=== PATIENT | male | born 1990 | race Caucasian/White ===

== ENCOUNTER → 2017-02-19 | Outpatient (CLI) | payer OTHER ==
--- NOTE | 2017-02-19 20:31 | REP ---
Whole body PET CT scan for evaluation of known osteosarcoma of the proximal right femur. Comparisons are the plain film study of the right femur dated 01/07/[address] of the right femur dated 01/07/2017. Whole body PET CT scanning is performed from the skull base to the upper thighs. Neck and supraclavicular areas: There are no hypermetabolic foci. Chest: There is a small 8 mm focus of uptake in the lateral costophrenic angle of the left hemithorax, corresponding to a small lung nodule. The maximal standard uptake value in this nodule is 3.2. This is a hypermetabolic. There are no other hypermetabolic foci in the chest. Abdomen, pelvis and upper thighs: There is a large area of confluent multifocal hypermetabolic foci corresponding to the patient's known large mass in the proximal right femur. Maximal standard uptake value is 14.7. There are no other hypermetabolic foci in the abdomen, pelvis or upper thighs. There is radiotracer renal excretion. This is physiologic. There is nonspecific bowel uptake. Impression: There is a small 8 mm focus of hypermetabolic uptake related to a lung nodule in the lateral costophrenic sulcus of the left lung. There is confluent multifocal hypermetabolic uptake in the patient's known mass in the right femur. There are no other hypermetabolic foci. The study is performed with a millicuries of F 18 FDG. Signed by Justen Benítez MD 02/19/2017 08:22 P
== END ==
LOC: M PLARAD 10:25
PROVIDERS: ATTEND Internal Medicine Hematology & Oncology
DX: C40.21 Malignant neoplasm of long bones of right lower limb (principal); R91.8 Other nonspecific abnormal finding of lung field
CPT/HCPCS: 78815; A9552

== ENCOUNTER → 2017-05-06 | Outpatient (REF) | payer OTHER | LOC: M SFHCLERA 13:04 | DX: R68.89 Other general symptoms and signs (principal) ==

== ENCOUNTER → 2017-08-26 | Outpatient (CLI) | payer OTHER | LOC: M ONCR 14:18 | DX: C40.21 Malignant neoplasm of long bones of right lower limb (principal) ==

== ENCOUNTER 2017-09-04 09:51 | Outpatient (RCR) | payer OTHER | END 2017-09-13 | LOC: M ONCR 09:51 | DX: C76.51 Malignant neoplasm of right lower limb (principal) | CPT/HCPCS: 77334 ==

== ENCOUNTER 2017-10-23 14:08 | Outpatient (RCR) | payer OTHER | END 2017-11-14 | LOC: M ONCR 14:08 | DX: C76.51 Malignant neoplasm of right lower limb (principal) | CPT/HCPCS: 77300 ==

== ENCOUNTER 2017-11-18 09:45 | Outpatient (RCR) | payer OTHER | END 2017-12-14 | LOC: M ONCR 09:45 | DX: C76.51 Malignant neoplasm of right lower limb (principal) | CPT/HCPCS: 77300 ==

== ENCOUNTER 2017-12-22 09:25 | Outpatient (RCR) | payer OTHER | END 2018-01-14 | LOC: M ONCR 09:25 | DX: C76.51 Malignant neoplasm of right lower limb (principal) | CPT/HCPCS: 77336 ==

== ENCOUNTER → 2017-12-31 | Outpatient (CLI) | payer OTHER ==
[~2017-12-31] MED LIST: GASTROGRAFIN SOLUTION 30ML (Q9963) As Ordered; ISOVUE-370 76% 100ML VIAL (Q9967) As Ordered
== END ==
LOC: M RAD 13:21
DX: C41.9 Malignant neoplasm of bone and articular cartilage, unspecified (principal); C40.21 Malignant neoplasm of long bones of right lower limb; R59.9 Enlarged lymph nodes, unspecified; R91.8 Other nonspecific abnormal finding of lung field
CPT/HCPCS: Q9963

== ENCOUNTER 2018-03-03 15:21 | Outpatient (RCR) | payer OTHER ==
[2018-03-12] MEDS ORDERED: OXYC10TA12 PO (14:15)
[2018-03-12] MEDS ORDERED: XARE15TA PO (14:15)
[2018-03-12] MEDS ORDERED: OXYC-517 PO (14:15)
[2018-03-19] MEDS ORDERED: OXYC-403 PO (10:19)
== END 2018-03-16 ==
LOC: M PT 15:21
PROVIDERS: ATTEND Radiology Radiation Oncology
DX: I89.0 Lymphedema, not elsewhere classified (principal)

== ENCOUNTER → 2018-04-06 | Outpatient (CLI) | payer OTHER ==
[~2018-04-06] MED LIST changes: +ALPR2TAB3 PO; +DEXA4TA PO; -GASTROGRAFIN SOLUTION 30ML (Q9963) As Ordered; -ISOVUE-370 76% 100ML VIAL (Q9967) As Ordered; +MORP-38 PO; +ONDA8TAB7 PO; +OXYC-403 PO; +OXYC-517 PO; +OXYC10TA12 PO; +PROC10TA4 PO; +XARE15TA PO
== END ==
LOC: M OPCLI5PR 08:00
PROVIDERS: ATTEND Internal Medicine Hematology & Oncology
DX: R31.9 Hematuria, unspecified (principal); C41.9 Malignant neoplasm of bone and articular cartilage, unspecified; Z88.1 Allergy status to other antibiotic agents; Z88.0 Allergy status to penicillin; Z88.2 Allergy status to sulfonamides; Z79.899 Other long term (current) drug therapy
CPT/HCPCS: 36430; P9016

== ENCOUNTER 2018-04-15 10:00 | Outpatient (RCR) | payer OTHER | END 2018-04-16 | LOC: M PT 10:00 | PROVIDERS: ATTEND Radiology Radiation Oncology | DX: I89.0 Lymphedema, not elsewhere classified (principal) ==

== ENCOUNTER 2018-04-24 12:00 | Outpatient (RCR) | payer OTHER ==
[2018-04-27] MEDS ORDERED: CLIN150C14 PO (14:06)
[2018-05-05] MEDS ORDERED: SPIR-10 PO (15:52)
[2018-05-05] MEDS ORDERED: OXYC10TA12 PO (16:14)
[2018-05-07] MEDS ORDERED: DEXA4TA PO (10:19)
[2018-05-07] MEDS ORDERED: XANA0.25 PO (13:43)
== END 2018-05-14 ==
LOC: M PT 12:00
PROVIDERS: ATTEND Radiology Radiation Oncology
DX: I89.0 Lymphedema, not elsewhere classified (principal)

== ENCOUNTER → 2018-05-12 | Outpatient (CLI) | payer OTHER ==
[~2018-05-12] MED LIST changes: +CLIN150C14 PO; +IMOD2TAB16 PO; +SPIR-10 PO; +XANA0.25 PO; +ZOFR8TAB24 PO
--- NOTE | 2018-05-12 14:00 | REP ---
Clinical: Scrotal swelling. Technique: Real time kellogg scale and color Doppler evaluation using high frequency transducer. Findings: Marked diffuse scrotal swelling is appreciated and otherwise nonspecific. Bilateral testicles and epididymi are relatively normal in contour, size, echogenicity, and vascularity without evidence for intratesticular mass lesion, infectious/inflammatory process, or torsion. Right testicle measures 3.3 x 2.1 x 2.4 cm. Left testicle measures 3.9 x 2.3 x 2.3 cm. No hydrocele. No varicocele. Impression: Marked scrotal swelling. Relatively normal appearance to the bilateral testicles and epididymi. Electronically Signed by All Pedroza MD 05/12/2018 01:51 P
== END ==
LOC: M RAD 12:19
PROVIDERS: ATTEND Nurse Practitioner Family
DX: N50.89 Other specified disorders of the male genital organs (principal)

== ENCOUNTER 2018-05-20 13:03 | Inpatient (IN) | payer OTHER ==
[~2018-05-20] VITALS: Ht 185.4 cm; Wt 141.0 kg
[~2018-05-20 13:03] MED LIST changes: -IMOD2TAB16 PO; -ZOFR8TAB24 PO
[2018-05-20] MEDS ORDERED: ONDANSETRON 4MG/2ML VIAL (J2405) IV ONE (13:30)
[2018-05-20] MEDS ORDERED: NS 1,000 ML IV ONE (13:30)
[2018-05-20] MEDS ORDERED: PROC10TA4 PO (15:55)
[2018-05-20] MEDS ORDERED: IMOD2TAB16 PO (15:55)
[2018-05-20] MEDS ORDERED: OXYC10TA12 PO (15:55)
[2018-05-20] MEDS ORDERED: XANA0.25 PO (15:55)
[2018-05-20] MEDS ORDERED: DEXA4TA PO (15:55)
[2018-05-20] MEDS ORDERED: ZOFR8TAB24 PO (15:55)
[2018-05-20 16:30] LABS: HEMATOCRIT 18.5 % (42.0-52.0); LYMPH % 5.7 % (24.0-44.0); MEAN CORPUSCULAR HEMOGLOBIN 27.1 pg (27.0-33.0); MEAN CORPUSCULAR HGB CONC 32.4 g/dl (32.0-36.5); MEAN CORPUSCULAR VOLUME 83.7 fl (80.0-96.0); MONO # 0.1 10^3/uL (0.0-0.8); MONO % 11.4 % (0.0-5.0); NEUTROPHILS % 74.9 % (36.0-66.0); RED BLOOD COUNT 2.21 10^6/uL (4.30-6.10)
[2018-05-20 16:31] LABS: LYMPH # 0.1 10^3/uL (1.5-6.5); NEUTROPHILS # 0.7 10^3/uL (1.8-7.7); PLATELET COUNT, AUTOMATED 56 10^3/uL (150-450); WHITE BLOOD COUNT 0.9 10^3/uL (4.0-10.0)
[2018-05-20] MEDS ORDERED: POTASSIUM CHLORIDE 10 MEQ SR TABLET PO ONE (17:00)
[2018-05-20] MEDS ORDERED: KCL 20MEQ IN 100ML SWI (KRUN) 20 MEQ in APPROPRIATE DILUENT 1 EA IV ONE ×2 (17:00)
[2018-05-20] MEDS ORDERED: AZTREONAM 2 GM in D5W MINI-BAG PLUS 50 ML IV SCH (17:00)
[2018-05-20 17:04] LABS: ALBUMIN 1.5 GM/DL (3.2-5.2); ALT/SGPT 53 U/L (12-78); BILIRUBIN,DIRECT 0.4 MG/DL (0.0-0.2); BILIRUBIN,TOTAL 0.6 MG/DL (0.2-1.0); BLOOD UREA NITROGEN 29 MG/DL (7-18); CARBON DIOXIDE LEVEL 26 MEQ/L (21-32); CHLORIDE LEVEL 96 MEQ/L (98-107); CREATININE FOR GFR 1.17 MG/DL (0.70-1.30); GLOMERULAR FILTRATION RATE > 60.0 (>60); GLUCOSE, FASTING 107 MG/DL (70-100); LIPASE 159 U/L (73-393); POTASSIUM SERUM 2.9 MEQ/L (3.5-5.1); SODIUM LEVEL 133 MEQ/L (136-145); TOTAL PROTEIN 4.8 GM/DL (6.4-8.2)
[2018-05-20] MEDS ORDERED: AZTREONAM 2 GM in D5W MINI-BAG PLUS 50 ML IV ONE (18:00)
[2018-05-20] MEDS ORDERED: NORCO, ANEXSIA 5/325MG TABLET (HYDROcodone/ACETAMINOPHEN) PO ONE (18:15)
[2018-05-20] MEDS ORDERED: D5W/0.45% SODIUM CHLORIDE 1,000 ML IV SCH (18:15)
[2018-05-20] MEDS ORDERED: PANTOPRAZOLE 40MG TAB (PROTONIX) PO ONE (18:15)
[2018-05-20] MEDS: KCL 10MEQ/100ML SWI (KRUN) 10 MEQ in APPROPRIATE DILUENT 1 EA IV SCH ×2 (18:22→20:42)
[2018-05-20 19:40] VITALS: BP 134/75
[2018-05-20] MEDS ORDERED: ACETAMINOPHEN TAB 650MG DOSE (2X325MG) PO PRN (19:45)
[2018-05-20] MEDS ORDERED: ALPRAZolam 0.25 MG TAB PO PRN (19:45)
[2018-05-20] MEDS ORDERED: oxyCODONE 5MG TAB PO PRN (19:45)
[2018-05-20] MEDS: PERCOCET 5MG/325MG TAB PO PRN (21:40)
--- NOTE | 2018-05-20 21:49 | HPE ---
DATE OF ADMISSION: 05/20/2018 CHIEF COMPLAINT: Vomiting, diarrhea, fatigue for about a week. HISTORY OF PRESENT ILLNESS: This is a 28-year-old gentleman with past medical history of progressive osteosarcoma of the bone complicated by profound lymphedema as well as renal obstruction requiring bilateral nephrostomy tubes about a week ago who now presents status post recent chemotherapy last with progressive malaise, vomiting, diarrhea, dehydration and pain. Patient reports that he got his last chemotherapy on . Since that time he has felt pretty wiped out. He has been vomiting, having profound diarrhea about 5 times a day. He actually denies any fevers or cough. He has not been eating well and feels dehydrated. Most of history obtained by his mother as patient felt to fatigued to speak. Dr. Abreu has been following the patient for the osteosarcoma. The last clinic note is from May 14. He was supposed to have a lab draw done yesterday, but he missed this because of profound weakness. He is currently complaining of 8 out of 10 pain in his lower back and right leg. His profound lymphedema including his scrotal edema causes significant discomfort. His mother is really concerned about the lymphedema and is wondering whether it can be "drained". He does follow with Dr. Mccall as his urologist and Dr. Abreu as his oncologist. REVIEW OF SYSTEMS: Negative in 14 out of 14 systems except as noted above. PAST MEDICAL HISTORY: Recent diagnosis of osteosarcoma about a year and a half ago, otherwise was completely healthy prior to that. PAST SURGICAL HISTORY: Patient has had multiple surgeries including right femur surgery, right hip surgery, left ACL surgery, tonsillectomy, appendectomy, and the nephrostomy tubes. MEDICATIONS: Patient's home medications include: - dexamethasone 4 mg with his chemotherapy - loperamide 2 mg as needed diarrhea - Zofran 8 mg every 8 as needed nausea - Compazine 10 mg every 6 as needed nausea - xanax 0.25 mg twice a day as needed anxiety - oxycodone 10 mg by mouth every 4 as needed pain ALLERGIES: Patient is allergic to AMOXICILLIN, CEFACLOR, CLARITHROMYCIN, CLAVULANIC ACID, ERYTHROMYCIN, PENICILLIN and SULFA ANTIBIOTICS. SOCIAL HISTORY: Patient is single. Lives with his mother. Has a girlfriend. Has two daughters and a son. No smoking, alcohol or drugs. FAMILY HISTORY: No family history concerning for malignancy. PHYSICAL EXAMINATION: VITAL SIGNS: He is tachycardic to 113. Blood pressure 116/58, saturating 96% on room air. He is afebrile to 98.9. GENERAL: He appears uncomfortable and fatigued and in pain. HEENT: Oropharynx clear. CARDIOVASCULAR: Tachycardic. No murmurs, rubs or gallops. LUNGS: Clear to auscultation bilaterally, anteriorly. ABDOMEN: Obese. Would not allow palpation of his abdomen secondary to discomfort. : Patient has profound scrotal edema. EXTREMITIES: Patient has significant lower extremity edema, 3+ pitting right greater than left lower extremity. NEUROLOGICAL: Patient is alert and oriented. Follows simple commands. No focal neurologic deficits. PSYCHIATRIC: Mood stable. LABS: Reveal a white count of 0.9, hemoglobin 6, creatinine of 18.5, platelets of 56. Chemistry reveals a potassium 2.9. Creatinine of 1.17. Sodium of 133. UA: From the nephrostomy tube shows 66 whites, positive leukocyte esterase. IMAGING: Patient had a chest x-ray. Read is pending at this time. ASSESSMENT AND PLAN: This is a 28-year-old gentleman with progressive osteosarcoma complicated by significant lymphedema and renal obstruction requiring bilateral nephrostomy tubes, who now presents with neutropenia, pancytopenia, UTI and diarrhea. PROBLEMS: 1. Urinary tract infection in the setting of neutropenia and pancytopenia. Patient UA is positive and he is neutropenic. He is not having fevers, but given the neutropenia, I am going to treat him with aztreonam 1 gram IV daily and we will follow urine cultures. He has got multiple allergies and that is the choice for the aztreonam. 2. Pancytopenia. Patient's hemoglobin is low at 6. He is receiving 2 units blood transfusion. No overt signs of bleeding. His platelets are 56, but he does not need a transfusion for that at this time given there is no overt signs of bleeding. Primary team should call Dr. Abreu tomorrow. I have placed and order on the chart. 3. History of osteosarcoma. Primary team to call Dr. Abreu tomorrow. For now I have placed an order on the chart. 4. History of recent bilateral nephrostomy tubes. Primary team should call Dr. Mccall tomorrow who he follows with for his nephrostomy tubes. Order is placed on the chart. 5. Pain control. Patient does have profound pain from his osteosarcoma. For now he is just requesting the oxycodone as needed that he normally takes at home. 6. Hypokalemia. Patient did receive potassium supplementation in the emergency room and should have a repeat BMP checked tomorrow. 7. Fluids and electrolytes. Nutrition for now, I have placed the patient on a regular diet with IV fluids going at 125 mL an hour. 8. Disposition planning. I have placed a physical therapy (PT) consult. Primary team should discuss with his oncologist his prognosis and palliative care should be considered if prognosis is poor and/or patient is approaching limited treatment options. 9. DVT prophylaxis. Will place the patient on subcutaneous heparin. 10. Patient is FULL CODE.
[2018-05-20] MEDS: ONDANSETRON 4MG/2ML VIAL (J2405) IV PRN (22:09)
[2018-05-20] MEDS: HEPARIN SOD (PORCINE) 5000 UNITS/ML VIAL SC SCH (22:10)
--- NOTE | 2018-05-20 23:04 | REP ---
PORTABLE CHEST: AP portable view of the chest is performed. COMPARISON: Prior CT chest 12/31/2017. There is pleural based opacity on the left probably representing loculated pleural fluid. There is some adjacent left lung base consolidation. There may be a small right effusion with mild adjacent right base atelectasis. Heart is not significantly enlarged. Right central venous catheter is seen with the tip in the superior vena cava. Electronically Signed by Justen hBatt MD 05/21/2018 12:34 A
[2018-05-21] VITALS (7 sets, daily range): BP systolic 116–141; BP diastolic 61–84
[2018-05-21] MEDS ORDERED: AZTREONAM 1 GM in D5W MINI-BAG PLUS 50 ML IV SCH (03:00)
[2018-05-21] MEDS: AZTREONAM 1 GM in D5W MINI-BAG PLUS 50 ML IV SCH ×3 (03:55→18:36)
[2018-05-21] MEDS: PERCOCET 5MG/325MG TAB PO PRN ×4 (04:15→23:37)
[2018-05-21] MEDS: HEPARIN SOD (PORCINE) 5000 UNITS/ML VIAL SC SCH (06:11)
[2018-05-21 08:45] LABS: HEMATOCRIT 21.4 % (42.0-52.0); MEAN CORPUSCULAR HEMOGLOBIN 27.1 pg (27.0-33.0); MEAN CORPUSCULAR HGB CONC 32.2 g/dl (32.0-36.5); MEAN CORPUSCULAR VOLUME 83.9 fl (80.0-96.0); RED BLOOD COUNT 2.55 10^6/uL (4.30-6.10)
[2018-05-21 08:53] LABS: WHITE BLOOD COUNT 1.9 10^3/uL (4.0-10.0)
[2018-05-21 08:57] LABS: HEMOGLOBIN 6.9 g/dl (13.5-17.5); PLATELET COUNT, AUTOMATED 39 10^3/uL (150-450)
[2018-05-21 09:04] LABS: BLOOD UREA NITROGEN 31 MG/DL (7-18); CALCIUM LEVEL 7.4 MG/DL (8.5-10.1); CARBON DIOXIDE LEVEL 26 MEQ/L (21-32); CHLORIDE LEVEL 98 MEQ/L (98-107); CREATININE FOR GFR 1.43 MG/DL (0.70-1.30); GLOMERULAR FILTRATION RATE > 60.0 (>60); GLUCOSE, FASTING 111 MG/DL (70-100); POTASSIUM SERUM 3.1 MEQ/L (3.5-5.1); SODIUM LEVEL 133 MEQ/L (136-145)
[2018-05-21] MEDS: POTASSIUM CHLORIDE 10% LIQ 20 MEQ/15 ML UDC PO ONE ×2 (09:15→10:17)
[2018-05-21] MEDS ORDERED: CEPACOL LOZENGE PO PRN (09:15)
[2018-05-21 09:53] LABS: ANISOCYTOSIS 2+; HYPOCHROMASIA 2+; LYMPHOCYTES 12 % (16-52); MONOCYTES 6 % (0-8); NEUTROPHILS 82 % (35-75); PLATELET ESTIMATE MARKED DECREASE (NORMAL)
[2018-05-21] MEDS: ONDANSETRON 4MG/2ML VIAL (J2405) IV PRN ×2 (10:17→18:37)
[2018-05-21 10:18] LABS: MAGNESIUM LEVEL 2.8 MG/DL (1.8-2.4)
[2018-05-21] MEDS ORDERED: POTASSIUM CHLORIDE 10 MEQ SR TABLET PO ONE ×2 (12:15→18:00)
--- NOTE | 2018-05-21 13:36 | REP ---
CT abdomen and pelvis without IV or oral contrast: History: History of hydronephrosis. History of osteosarcoma. Comparison CT study is from December 31, 2017. CT findings: Digital preliminary property man radiograph demonstrates a right hip prosthesis, moderate to marked gaseous distension of the transverse colon and mild gaseous distension of multiple small bowel loops in the central abdomen consistent with ileus, and bilateral percutaneous nephrostomy tubes in place. Axial CT images at lung window settings demonstrate multiple pulmonary mass lesions and pleural mass lesions many of which contain calcific matrix consistent with osteosarcoma metastases. There are bilateral pleural effusions, left a little larger than right. The liver and the spleen are normal in size, homogeneous in texture. No pancreatic abnormality is seen. Gallbladder is unremarkable. Bilateral percutaneous nephrostomy tubes are noted in good position without evidence of hydronephrosis on either side. There is a huge pelvic mass compressing the left colon and displacing small bowel loops up from the pelvis. This is new when compared with December 31, 2017 and much larger than CT images obtained at the time of the percutaneous biopsy and [facility] on March 05, 2018. The pelvo-abdominal mass measures 12 cm anteroposterior by 19 cm craniocaudal by 14.7 cm right to left. It contains a few focal calcifications. There are also periarticular masses about the right hip prosthesis. Calcified mass is seen spanning through the obturator foramen on the right and extending into the pelvic side wall on the right. There is right common and external iliac adenopathy enveloping the right iliac vessels. There is diffuse edema in the subcutaneous fat of the proximal thighs. Scrotal edema is noted. Subcutaneous edema is seen diffusely throughout the abdominal wall as well. The left colon is compressed. There is a small quantity of fluid in the rectum but the proximal colon is quite dilated mostly with air. On bone windows there is a sclerotic lesion in the left iliac bone consistent with a metastasis. This is 2.5 cm in diameter. There is another area of suspicious sclerosis in the right posterior iliac bone similar in size. A prosthesis is noted in the right hip. Impression: Rapid progression in the size of the pelvic mass, now 19 cm in greatest diameter. This produces left colonic obstruction from extrinsic compression. There is right iliac adenopathy enveloping the vessels. There is evidence of bony metastasis to the iliac bones bilaterally. There is evidence of pleural and pulmonary parenchymal metastatic lesions which has progressed rapidly as well. Bilateral nephrostomy tubes are noted in good position. Electronically Signed by Padilla Gross MD 05/21/2018 01:45 P
[2018-05-21] MEDS: FILGRASTIM 300 MCG/0.5 ML SYRINGE (J1442 PER 1MCG) SC SCH (13:47)
--- NOTE | 2018-05-21 16:48 | CR.PDOC ---
General Date of Consultation: May 21, 2018 Referring Provider: KIM GEE MD Attending Physician: KIM GEE MD Consultation REASON FOR CONSULTATION/CHIEF COMPLAINT: Discussion of current goals of care; likely need for referral to hospice care. HISTORY OF PRESENT ILLNESS: Gerry is a 28 year old male I have seen [facility] at the [facility]. He was diagnosed with right femur osteosarcoma in 2017 and had surgery and chemotherapy in [place]. He also underwent hip surgery to remove osteosarcoma and after displacement of right hip jiont total right MITCHELL. 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 However, he was diagnosed with recurrent disease and had RT and was started on chemotherapy here at the [facility]. He was often unable to toelrate chemotherapy due to marked hematological effects. Subsequently he developed severe lymphedema as well as hydronephrosis for which he received bilateral nephrostomy tubes a few weeks ago to correct ARF. He reported for a few days the neph tubes funtioned well; his left leg edema improved to some degree. This past Friday he developed n/v/malaise. His mother noted his right neph tube dud not seem to be draining as well anymore. They came to ED and he was admitted to PCU. ALLERGIES: Please see below. HOME MEDICATIONS: Please see below. PAST MEDICAL HISTORY: 1. NA 2. PAST SURGICAL HISTORY: 1. as above 2. 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 HEENT: dry mouth, denies oral pain. CARDIOVASCULAR: denies chest pain or palpitations. RESPIRATORY: difficulty with breathing due to restriction due to disease process GENITOURINARY: nephrostomy tubes, right one draining less than previously, fluid is very dark red. MUSCULOSKELETAL: generalized aching and difficulty getting comfortable. GASTROINTESTINAL: diarrhea, vomiting, poor appetite. SKIN: recent cellulitis lower extremities. NEUROLOGICAL: difficulty with ambulation; requires crutches. Fall risk. Denies tremors. Wekness PSYCHIATRIC: angry, anxious, depressed. ENDOCRINE: denies excessive thirst, heat/codl intolerance. HEMATOLOGIC/LYMPHATIC: Meetastatic disease to inguinal nodes, LLL. Lymphedema lower extrmeities. Pancytopenia ALLERGIC/IMMUNOLOGIC: Multiple antibiotic allergies. PHYSICAL EXAMINATION: VITAL SIGNS: Please see below. GENERAL APPEARANCE: Exhaused, color kellogg. HEENT: Scratches on cheeks. He asked me notto further examine his oral cavity RESPIRATORY: deferred. CARDIOVASCULAR: deferred. ABDOMEN: Protuberant, tense. EXTREMITIES: Bilateral lymphedema causing tense skin, warm to touch. NEUROLOGICAL: No tremor noted, no focal deficits. PSYCHIATRIC: Irritable, withdrawn, stated he is sick of"everyone coming in here and looking at me...don't look at me!". LABORATORY DATA: Please see below. ASSESSMENT/PLAN: 1. Metastatic osteosarcoma. At the time of my visit, he was awaiting an abdominal scan. I returned later and was informed Dr. Gee, hospitalist was conferring with Dr. Moreira, Oncologist in [place] who initally started treatment for Gerry. His abdominal scan revelaed worsening abdominal tumor burden. 2. Advance directives: Gerry and his mother declined to have me come into the room when I returned this afternoon, just having received the news about his increased tumor size. He is not palliative care appropriate atthis point, but rather hospice appropriate. Our social media marketing manager, Latrice Osorio APARTMENT MAINTENANCE MANAGER will attempt to reach out to Monserrat Argueta, Gerry's mother later today or tomorrow and we hope to be able to help them set up goals for his care given his even more grim prognosis at this point. Vital Signs/I&O Vital Signs Date Time Temp Pulse Resp B/P (MAP) Pulse Ox O2 Delivery O2 Flow Rate FiO2 05/21/18 10:19 16 05/21/18 08:52 97.5 108 139/84 (102) 95 05/20/18 16:08 Room Air I&O- Last 24 Hours up to 6 AM 05/21/18 06:00 Intake Total 3020 ml Output Total 250 ml Balance 2770 ml Laboratory Data Labs 24H Laboratory Tests 2 05/21/18 08:16: White Blood Count 1.9L, Red Blood Count 2.55L, Hemoglobin 6.9*L, Hematocrit 21.4L, Mean Corpuscular Volume 83.9, Mean Corpuscular Hemoglobin 27.1, Mean Corpuscular Hemoglobin Concent 32.2, Red Cell Distribution Width 17.4H, Platelet Count 39#L, Lymphocytes # (Auto) , Nucleated Red Blood Cells % (auto) 1.1H, Neutrophils 82H, Lymphocytes (Manual) 12L, Monocytes (Manual) 6, Platelet Estimate MARKED DECREASE, Hypochromasia 2+, Anisocytosis 2+, Anion Gap 9, Glomerular Filtration Rate > 60.0, Blood Urea Nitrogen 31H, Creatinine 1.43H, Sodium Level 133L, Potassium Level 3.1L, Chloride Level 98, Carbon Dioxide Level 26, Calcium Level 7.4L, Magnesium Level 2.8H CBC/BMP Laboratory Tests 05/21/18 08:16 Red Blood Count 2.55 L, Mean Corpuscular Volume 83.9, Mean Corpuscular Hemoglobin 27.1, Mean Corpuscular Hemoglobin Concent 32.2, Red Cell Distribution Width 17.4 H, Lymphocytes # (Auto) , Calcium Level 7.4 L Microbiology Microbiology 05/20/18 Blood Culture, Received Pending 05/20/18 Blood Culture - Preliminary, Resulted 05/21/18 Gastrointestinal Tract Panel (PCR) - Final, Complete 05/20/18 Urine Culture, Received Pending Allergies Coded Allergies: Amoxicillin (Unverified Allergy, Unknown, 03/26/18) Cefaclor (Unverified Allergy, Unknown, 03/26/18) Clarithromycin (Unverified Allergy, Unknown, 03/26/18) Clavulanic Acid (Unverified Allergy, Unknown, 03/26/18) Erythromycin (Verified Allergy, Unknown, 05/20/18) Penicillins (Unverified Allergy, Unknown, 03/26/18) Sulfa Antibiotics (Unverified Allergy, Unknown, 03/26/18) Home Medications Scheduled Dexamethasone (Dexamethasone) 4 Mg Tab, 4 MG PO ASDIRECTED, (Reported) 8MG BID ON DAY BEFORE, DAY OF, AND DAY AFTER CHEMO Scheduled PRN Alprazolam (Xanax) 0.25 Mg Tab, 0.25 MG PO BID PRN for ANXIETY, (Reported) Loperamide Hcl (Imodium A-D) 2 Mg Tab, 2 MG PO PRN PRN for DIARRHEA, (Reported) Ondansetron HCl (Zofran) 8 Mg Tab, 8 MG PO Q8H PRN for NAUSEA, (Reported) Oxycodone HCl (Oxycodone HCl) 10 Mg Tab, 10 MG PO Q4H PRN for PAIN, (Reported) Prochlorperazine Maleate (Prochlorperazine Maleate) 10 Mg Tab, 10 MG PO Q6H PRN for NAUSEA, (Reported) Mari HARRISON RANGE TECHNICIAN May 21, 2018 16:44
--- NOTE | 2018-05-21 16:55 | IPNPDOC ---
Subjective Date Seen The patient was seen on 05/21/18. Subjective Chief Complaint/HPI Patient seen and examined at the bedside. Found to have a rapid progression of underlying malignancy on CT scan of the abdomen/pelvis. Objective Physical Examination General Exam: Positive: Alert, Cooperative, Mild Distress (2/2 general discomfort, fatigue) ENT Exam: Positive: Atraumatic Chest Exam: Positive: Clear to auscultation, Normal air movement Heart Exam: Positive: Tachycardic, Normal S1, Normal S2 Telemetry: Positive: Sinus Abdomen Exam: Positive: Other (distended abdomen, tympanic on percussion. Mild tenderness to deep palpation in the bilateral upper quadrants.) Extremity Exam: Positive: Swelling (3+ pitting edema in the lower extremities bilaterally, weeping noted on the right lower extremity) Psych Exam: Positive: Oriented x 3 Assessment /Plan Plan/VTE VTE Prophylaxis Ordered?: Yes Plan Hx of Osteosarcoma of the Bone into the Soft Tissues Follows with Dr. Abreu of Oncology Locally and Dr. Moreira at [facility] Received 2nd round of Chemotherapy Last Has been declining in health since then with intractable nausea, vomiting, diarrhea, and decline in functional status. CT Abd/Pel done today revealed rapid progression in the size of his pelvic mass, now 19 cm in greatest diameter which has produced a left colonic obstruction from extrinsic compression. There is also noted right iliac adenopathy and evidence of bony metastasis to the iliac bones bilaterally. There is also evidence of pleural and pulmonary parenchymal metastatic lesions which have also rapidly progressed. These findings were discussed with Dr. Abreu and Dr. Moreira and it is deemed that the patient has a very poor prognosis, and hospice has been recommended. I did speak to Palliative Care; PEDRITO Pearson as she is familiar with the patient/family and she will be in to speak with the patient. However, the patient and his mother have been adamant in exploring all treatment options, and have requested a transfer to [facility]. Dr. Moreira has graciously accepted the patient under the Oncology service. There is currently a wait list for bed availability at [facility]. We will transfer the patient once a bed is available. Left Colonic Obstruction 2/2 Extrinsic Compression from underlying Malignancy His belly is distended, and tympanic to percussion. He is currently comfortable and is not complaining of significant pain, and has tolerated a diet while here. The patient is passing flatus, and notes that he had a BM just two hrs ago. At this time we will cont the patient on a liquid diet only Lymphedema, Scrotal Edema 2/2 Above I did speak to Dr. Mccall of Urology for the patient's scrotal edema U/S from 05/12 done as outpatient reviewed Dr. Mccall has recommended elevation of the scrotum at this time, and notes that there is no procedural indication. Pancytopenia likely 2/2 Above We will continue to transfuse the patient as indicated Neupogen started for Neutropenia Hx of B/L Hydronephrosis s/p B/L Nephrostomy 2/2 Inferior to Bladder Mass CT Abd/Pel does not reveal any Hydronephrosis 1/2 Sets of Blood Cultures Preliminarily Positive for Gram Negative Rods No clear source of infection at this time Possibly contaminant? Given the patient's immunocompromised state, Neutropenia--We have covered the patient with Azactam Patient does have a penicillin allergy which does make choosing an antibiotic difficult. Infectious diseases consulted for further delineation. DVT Prophylaxis SCDs/TEDs Very Poor Prognosis--discussed at length with the patient and mother at the bedside. They have verbalized understanding of the same but would like to still pursue any other potential treatment options possible. VS, I&O, 24H, Fishbone Vital Signs/I&O Vital Signs Date Time Temp Pulse Resp B/P (MAP) Pulse Ox O2 Delivery O2 Flow Rate FiO2 05/21/18 10:19 16 05/21/18 08:52 97.5 108 139/84 (102) 95 05/20/18 16:08 Room Air I&O- Last 24 Hours up to 6 AM 05/21/18 06:00 Intake Total 3020 ml Output Total 250 ml Balance 2770 ml Laboratory Data 24H LABS Laboratory Tests 2 05/21/18 08:16: White Blood Count 1.9L, Red Blood Count 2.55L, Hemoglobin 6.9*L, Hematocrit 21.4L, Mean Corpuscular Volume 83.9, Mean Corpuscular Hemoglobin 27.1, Mean Corpuscular Hemoglobin Concent 32.2, Red Cell Distribution Width 17.4H, Platelet Count 39#L, Lymphocytes # (Auto) , Nucleated Red Blood Cells % (auto) 1.1H, Neutrophils 82H, Lymphocytes (Manual) 12L, Monocytes (Manual) 6, Platelet Estimate MARKED DECREASE, Hypochromasia 2+, Anisocytosis 2+, Anion Gap 9, Glomerular Filtration Rate > 60.0, Blood Urea Nitrogen 31H, Creatinine 1.43H, Sodium Level 133L, Potassium Level 3.1L, Chloride Level 98, Carbon Dioxide Level 26, Calcium Level 7.4L, Magnesium Level 2.8H CBC/BMP Laboratory Tests 05/21/18 08:16 Red Blood Count 2.55 L, Mean Corpuscular Volume 83.9, Mean Corpuscular Hem oglobin 27.1, Mean Corpuscular Hemoglobin Concent 32.2, Red Cell Distribution Width 17.4 H, Lymphocytes # (Auto) , Calcium Level 7.4 L Microbiology Microbiology 05/20/18 Blood Culture, Received Pending 05/20/18 Blood Culture - Preliminary, Resulted 05/21/18 Gastrointestinal Tract Panel (PCR) - Final, Complete 05/20/18 Urine Culture, Received Pending KIM GEE MD May 21, 2018 16:55
[2018-05-21] MEDS ORDERED: POTASSIUM CHLORIDE 10% LIQ 20 MEQ/15 ML UDC PO ONE (18:00)
[2018-05-21] MEDS: MAALOX 30 ML SUSP *UDC PO PRN (18:35)
[2018-05-21 19:46] LABS: HEMOGLOBIN 7.9 g/dl (13.5-17.5)
[2018-05-22] MEDS: ONDANSETRON 4MG/2ML VIAL (J2405) IV PRN (00:54)
[2018-05-22] MEDS: AZTREONAM 1 GM in D5W MINI-BAG PLUS 50 ML IV SCH ×2 (00:59→10:30)
[2018-05-22 04:00] VITALS: BP 111/58
[2018-05-22] MEDS: SIMETHICONE 80 MG CHEW TAB PO PRN ×2 (06:49→10:36)
[2018-05-22 08:00] VITALS: BP 133/76
[2018-05-22 09:13] LABS: HEMOGLOBIN 8.3 g/dl (13.5-17.5); MEAN CORPUSCULAR HEMOGLOBIN 27.4 pg (27.0-33.0); MEAN CORPUSCULAR HGB CONC 33.2 g/dl (32.0-36.5); MEAN CORPUSCULAR VOLUME 82.5 fl (80.0-96.0); RED BLOOD COUNT 3.03 10^6/uL (4.30-6.10); WHITE BLOOD COUNT 5.3 10^3/uL (4.0-10.0)
[2018-05-22 09:21] LABS: PLATELET COUNT, AUTOMATED 44 10^3/uL (150-450)
[2018-05-22 09:37] LABS: ALBUMIN 1.6 GM/DL (3.2-5.2); BILIRUBIN,TOTAL 0.7 MG/DL (0.2-1.0); CALCIUM LEVEL 7.5 MG/DL (8.5-10.1); CREATININE FOR GFR 1.57 MG/DL (0.70-1.30); GLOMERULAR FILTRATION RATE 55.9 (>60); POTASSIUM SERUM 3.5 MEQ/L (3.5-5.1); TOTAL PROTEIN 4.8 GM/DL (6.4-8.2)
[2018-05-22 09:50] LABS: ATYPICAL LYMPH 1 % (0-5); LYMPHOCYTES 12 % (16-52); MONOCYTES 8 % (0-8); NEUTROPHILS 73 % (35-75)
[2018-05-22 09:51] LABS: PLATELET ESTIMATE DECREASED (NORMAL)
[2018-05-22 09:52] LABS: ANISOCYTOSIS 2+; HYPOCHROMASIA 1+
[2018-05-22] MEDS: PERCOCET 5MG/325MG TAB PO PRN (10:36)
[2018-05-22 10:37] VITALS: BP 139/76
--- NOTE | 2018-05-22 10:43 | DS.PDOC ---
Discharge Summary General Date of Admission May 20, 2018 at 20:02 Date of Discharge 05/22/18 Specialist/Consultants Involve Dr. Yee of [place], Dr. Abreu of Heme/Onc, Dr. Moreira of [facility] Heme/Onc, PEDRITO Pearson of Palliative Care Discharge Summary PROCEDURES PERFORMED DURING STAY: None. 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 HISTORY OF PRESENT ILLNESS: . 28-year-old male with the unfortunate past medical history of osteosarcoma of the right femur initially diagnosed in 2016 status post chemotherapy and surgery in [place] who has had a recurrence of his disease and has been receiving his second round of chemotherapy last 05/14/18 for which he follows Dr. Abreu of Hematology/Oncology locally. PMH is also pertinent for recent B/L Hydroureteronephrosis 2/2 homogeneous mass in the pelvis/inferior to the bladder s/p bilateral nephrostomy tube placement, and chronic lower extremity lymphedema from the above presented to the ER with the chief complaint of intractable nausea, vomiting, abdominal distention/discomfort, and generalized weakness since his last chemotherapy session. He denied any fevers, chills, chest pain, palpitations, sick contacts, recent travel, or ingestion of any foreign foods. In the ER, the patient was noted to be pancytopenic and he was admitted to the hospitalist service for further evaluation and management. During hospitalization a CT Abd/Pel revealed a rapid progression in the size of his pelvic mass, now 19 cm in greatest diameter which produced a left colonic obstruction from extrinsic compression. There was also noted right iliac adenopathy and evidence of bony metastasis to the iliac bones bilaterally. There was also evidence of pleural and pulmonary parenchymal metastatic lesions which have also rapidly progressed. These findings were discussed with Dr. Abreu of Heme/Onc who has consulted on the case, and Dr. Harish Martínez/Gisele from [facility] who previously administered care for the patient. It does appear that the patient's rapid progression of disease portends a rather poor prognosis. The patient has been accepted in transfer to [facility] for further evaluation by Hematology/Oncology. Of note, the patient was noted to have 1/2 Sets of Blood Cultures Preliminarily Positive for Gram Negative Rods, and Urine Culture positive for Enterobacter Cloacae 2/2 UTI/Pyelonephritis. He has been started on Azactam for this given penicillin allergy, ID was consulted here. Otherwise, during this hospitalization the patient has been transfused 4 units of packed red blood cells and his hemodynamic status has remained stable. At this time, we will discharge the patient for further follow-up at [facility]. DISCHARGE MEDICATIONS: Please see below. ALLERGIES: Please see below. PHYSICAL EXAMINATION ON DISCHARGE: VITAL SIGNS: Please see below. General Exam: Positive: Alert, Cooperative, Mild Distress (2/2 general discomfort, fatigue) ENT Exam: Positive: Atraumatic Chest Exam: Positive: Clear to auscultation, Normal air movement Heart Exam: Positive: Tachycardic, Normal S1, Normal S2 Telemetry: Positive: Sinus Abdomen Exam: Positive: Other (distended abdomen, tympanic on percussion. Mild tenderness to deep palpation in the bilateral upper quadrants.) Extremity Exam: Positive: Swelling (3+ pitting edema in the lower extremities bilaterally, weeping noted on the right lower extremity) Psych Exam: Positive: Oriented x 3 LABORATORY DATA: Please see below. IMAGING: PORTABLE CHEST: AP portable view of the chest is performed. COMPARISON: Prior CT chest 12/31/2017. There is pleural based opacity on the left probably representing loculated pleural fluid. There is some adjacent left lung base consolidation. There may be a small right effusion with mild adjacent right base atelectasis. Heart is not significantly enlarged. Right central venous catheter is seen with the tip in the superior vena cava. CT abdomen and pelvis without IV or oral contrast: History: History of hydronephrosis. History of osteosarcoma. Comparison CT study is from December 31, 2017. CT findings: Digital preliminary filter press tender head radiograph demonstrates a right hip prosthesis, moderate to marked gaseous distension of the transverse colon and mild gaseous distension of multiple small bowel loops in the central abdomen consistent with ileus, and bilateral percutaneous nephrostomy tubes in place. Axial CT images at lung window settings demonstrate multiple pulmonary mass lesions and pleural mass lesions many of which contain calcific matrix consistent with osteosarcoma metastases. There are bilateral pleural effusions, left a little larger than right. The liver and the spleen are normal in size, homogeneous in texture. No pancreatic abnormality is seen. Gallbladder is unremarkable. Bilateral percutaneous nephrostomy tubes are noted in good position without evidence of hydronephrosis on either side. There is a huge pelvic mass compressing the left colon and displacing small bowel loops up from the pelvis. This is new when compared with December 31, 2017 and much larger than CT images obtained at the time of the percutaneous biopsy and [facility] on March 05, 2018. The pelvo-abdominal mass measures 12 cm anteroposterior by 19 cm craniocaudal by 14.7 cm right to left. It contains a few focal calcifications. There are also periarticular masses about the right hip prosthesis. Calcified mass is seen spanning through the obturator foramen on the right and extending into the pelvic side wall on the right. There is right common and external iliac adenopathy enveloping the right iliac vessels. There is diffuse edema in the subcutaneous fat of the proximal thighs. Scrotal edema is noted. Subcutaneous edema is seen diffusely throughout the abdominal wall as well. The left colon is compressed. There is a small quantity of fluid in the rectum but the proximal colon is quite dilated mostly with air. On bone windows there is a sclerotic lesion in the left iliac bone consistent with a metastasis. This is 2.5 cm in diameter. There is another area of suspicious sclerosis in the right posterior iliac bone similar in size. A prosthesis is noted in the right hip. Impression: Rapid progression in the size of the pelvic mass, now 19 cm in greatest diameter. This produces left colonic obstruction from extrinsic compression. There is right iliac adenopathy enveloping the vessels. There is evidence of bony metastasis to the iliac bones bilaterally. There is evidence of pleural and pulmonary parenchymal metastatic lesions which has progressed rapidly as well. Bilateral nephrostomy tubes are noted in good position. PROGNOSIS: Poor long-term prognosis ACTIVITY: As tolerated. DIET: Full liquid diet DISCHARGE PLAN: Transfer to [facility] DISPOSITION: . Transfer to [facility] DISCHARGE INSTRUCTIONS: Follow-up with hematology/oncology at [facility] DISCHARGE CONDITION: Stable. TIME SPENT ON DISCHARGE: Greater than 30 minutes. Vital Signs/I&Os Vital Signs Date Time Temp Pulse Resp B/P (MAP) Pulse Ox O2 Delivery O2 Flow Rate FiO2 3/8/19 08:00 98.4 120 18 133/76 (95) 94 05/20/18 16:08 Room Air I&O- Last 24 Hours up to 6 AM 05/22/18 06:00 Intake Total 2825 ml Output Total 1650 ml Balance 1175 ml Laboratory Data Labs 24H Laboratory Tests 2 05/22/18 08:57: Immature Granulocyte % (Auto) , White Blood Count 5.3, Red Blood Count 3.03L, Hemoglobin 8.3L, Hematocrit 25.0L, Mean Corpuscular Volume 82.5, Mean Corpuscular Hemoglobin 27.4, Mean Corpuscular Hemoglobin Concent 33.2, Red Cell Distribution Width 17.4H, Platelet Count 44L, Lymphocytes # (Auto) , Nucleated Red Blood Cells % (auto) 1.5H, Neutrophils 73, Band Neutrophils 6, Lymphocytes (Manual) 12L, Monocytes (Manual) 8, Atypical Lymphocytes 1, Platelet Estimate DECREASED, Immature Platelet Fraction 5.7, Hypochromasia 1+, Anisocytosis 2+, Anion Gap 11, Glomerular Filtration Rate 55.9L, Blood Urea Nitrogen 32H, Creatinine 1.57H, Sodium Level 132L, Potassium Level 3.5, Chloride Level 97L, Carbon Dioxide Level 24, Calcium Level 7.5L, Aspartate Amino Transf (AST/SGOT) 81H, Alanine Aminotransferase (ALT/SGPT) 57, Alkaline Phosphatase 255H, Total Bilirubin 0.7, Total Protein 4.8L, Albumin 1.6L, Albumin/Globulin Ratio 0.50L CBC/BMP Laboratory Tests 05/21/18 19:33 05/22/18 08:57 Red Blood Count 3.03 L, Mean Corpuscular Volume 82.5, Mean Corpuscular Hemoglobin 27.4, Mean Corpuscular Hemoglobin Concent 33.2, Red Cell Distribution Width 17.4 H, Lymphocytes # (Auto) , Calcium Level 7.5 L, Aspartate Amino Transf (AST/SGOT) 81 H, Alanine Aminotransferase (ALT/SGPT) 57, Alkaline Phosphatase 255 H, Total Bilirubin 0.7, Total Protein 4.8 L, Albumin 1.6 L Microbiology Microbiology 05/20/18 Blood Culture - Preliminary, Resulted No growth after 24 hours . All specim... 05/20/18 Blood Culture - Preliminary, Resulted 05/21/18 Gastrointestinal Tract Panel (PCR) - Final, Complete 05/20/18 Urine Culture - Final, Complete Enterobacter Cloacae Complex Discharge Medications Scheduled Dexamethasone (Dexamethasone) 4 Mg Tab, 4 MG PO ASDIRECTED, (Reported) 8MG BID ON DAY BEFORE, DAY OF, AND DAY AFTER CHEMO Scheduled PRN Alprazolam (Xanax) 0.25 Mg Tab, 0.25 MG PO BID PRN for ANXIETY, (Reported) Ondansetron HCl (Zofran) 8 Mg Tab, 8 MG PO Q8H PRN for NAUSEA, (Reported) Oxycodone HCl (Oxycodone HCl) 10 Mg Tab, 10 MG PO Q4H PRN for PAIN, (Reported) Prochlorperazine Maleate (Prochlorperazine Maleate) 10 Mg Tab, 10 MG PO Q6H PRN for NAUSEA, (Reported) Allergies Coded Allergies: Amoxicillin (Unverified Allergy, Unknown, 03/26/18) Cefaclor (Unverified Allergy, Unknown, 03/26/18) Clarithromycin (Unverified Allergy, Unknown, 03/26/18) Clavulanic Acid (Unverified Allergy, Unknown, 03/26/18) Erythromycin (Verified Allergy, Unknown, 05/20/18) Penicillins (Unverified Allergy, Unknown, 03/26/18) Sulfa Antibiotics (Unverified Allergy, Unknown, 03/26/18) KIM GEE MD May 22, 2018 10:43
[2018-05-22] MEDS: FILGRASTIM 300 MCG/0.5 ML SYRINGE (J1442 PER 1MCG) SC SCH (11:54)
[2018-05-22] MEDS: MAALOX 30 ML SUSP *UDC PO PRN (12:04)
--- NOTE | 2018-05-22 15:38 | CR ---
DATE OF CONSULTATION: 05/22/2018 REQUESTING PROVIDER: Hospitalist REASON FOR CONSULTATION: For evaluation of febrile neutropenia in a patient with osteosarcoma. HISTORY OF PRESENT ILLNESS: Gerry is a 28-year-old gentleman who has a history of progressive osteosarcoma of the bone complicated by metastasis with a very large abdominal mass leading to bilateral hydronephrosis. The patient had bilateral nephrostomy tubes a week prior to admission. He received chemotherapy a week ago, following which he started developing vomiting, diarrhea and severe fatigue. The patient denied having any fever or chills. He felt exhausted and came to the emergency room. He had not been eating well. His mother is at the bedside giving most of the history. He is very frustrated and exhausted. He does not want to be examined. He is seen by Dr. Abreu at [facility] and Dr. Moreira in [place] and patient's urologist is Dr. Mccall, who is also supposed to see him today. PAST MEDICAL HISTORY: Past medical history significant for metastatic osteosarcoma with increasing pelvic mass leading to bilateral renal obstruction, status post recent nephrostomy tubes. PAST SURGICAL HISTORY: Right femur surgery, right hip surgery, left anterior cruciate ligament (ACL), tonsillectomy, appendectomy and nephrostomy tubes. MEDICATIONS: - simethicone 80 mg by mouth three times a day as needed - Mylanta as needed - Cepacol as needed every 2 hours as needed - Neupogen 300 mcg subcutaneously daily - aztreonam 1 gram IV every 8 hours - alprazolam as needed - Percocet 1-2 tablets as needed - Zofran as needed ALLERGIES: AMOXICILLIN, the patient had hives. CECLOR, the patient had hives. He was penicillin tested as a child and he definitely has PENICILLIN allergy, CLARITHROMYCIN, ERYTHROMYCIN. The patient has never tried carbapenems. LABORATORY DATA: White count on 05/21/2018 was 1.9, hemoglobin 6.9, hematocrit 21.4, platelets 39. White count on admission was 0.9, hemoglobin 6, 82% neutrophils, 12% lymphocytes, 6% monocytes. The patient received 4 units of packed red blood cells. Chemistries: Sodium 133, potassium 3.1, chloride 98, bicarbonate 26, BUN 31, creatinine 1.43, glucose 111, calcium 7.4, magnesium 2.8, AST 46, ALT 53, alk phos 196, total protein of 4.8, albumin 1.5. Urine culture from the ureter was positive for Enterobacter cloacae complex. Blood culture has gram-negative rods, 1 out of 2. GI panel was negative. Urine culture Enterobacter cloacae is only resistant to cefazolin, susceptible to aztreonam. PHYSICAL EXAMINATION: Temperature is 97.7, pulse 113, respirations 18, blood pressure 130/75, O2 sat 97% on 2 liters. The patient looks exhausted, closing his eyes when interviewed. He is alert and oriented times three. He refuses to be examined today and asked me to come back in the morning to examine him. IMPRESSION: This is a 28-year-old gentleman with metastatic osteosarcoma to the bone who recently had nephrostomy tubes and was admitted with intractable nausea, vomiting, diarrhea, most likely related to his chemotherapy from gemcitabine and urinary tract infection. Status post nephrostomy tube placement. The patient has a pyelonephritis with culture positive for E cloacae and bacteremia. The patient has a history of significant allergy to PENICILLIN and CEPHALOSPORIN and therefore has been treated with aztreonam. The patient has improved with IV antibiotics. He also suffers from severe lower extremity edema, lymphedema, and scrotal edema, which has also been a concern for the family and a source of entry of infection. He has bilateral hydronephrosis, status post a nephrostomy tube due to a pelvic mass. PLAN: Continue with IV aztreonam 1 gram every 8 hours. The patient is being transferred to [place]. He will be seen tomorrow to fully examine him as he refused to be examined today. At some point, I would recommend trial of meropenem while he is in the hospital as his choices of antibiotics are kind of limited with his previous allergies to penicillins and cephalosporins and since he is a very ill patient with febrile neutropenia, carbapenems would be a good option, first line option, and will need to be trialed at some point. Prognosis is poor.
== END 2018-05-22 13:25 | disposition short-term general hospital (02) | DRG 463 ==
LOC: M ED 13:03 → M ED INP 20:02 → M PCU 21:46
PROVIDERS: ADMIT Internal Medicine; ATTEND Internal Medicine
PROC: 30233N1 Transfusion of Nonautologous Red Blood Cells into Peripheral Vein, Percutaneous Approach (ICD-10-PCS; principal; 2018-05-20)
DX: N39.0 Urinary tract infection, site not specified (principal); D61.818 Other pancytopenia; K56.699 Other intestinal obstruction unspecified as to partial versus complete obstruction; C78.00 Secondary malignant neoplasm of unspecified lung; C78.2 Secondary malignant neoplasm of pleura; C79.51 Secondary malignant neoplasm of bone; Z93.6 Other artificial openings of urinary tract status; N13.30 Unspecified hydronephrosis; Z79.899 Other long term (current) drug therapy; Z88.0 Allergy status to penicillin; Z88.2 Allergy status to sulfonamides; Z88.8 Allergy status to other drugs, medicaments and biological substances; E87.6 Hypokalemia; I89.0 Lymphedema, not elsewhere classified; Z96.641 Presence of right artificial hip joint

== ENCOUNTER → 2018-06-17 | Outpatient (REF) | payer OTHER ==
[~2018-06-17] MED LIST changes: +IMOD2TAB16 PO; +ZOFR8TAB24 PO
[2018-06-17 13:26] LABS: ALBUMIN 1.4 GM/DL (3.2-5.2); ALT/SGPT 28 U/L (12-78); BILIRUBIN,TOTAL 0.2 MG/DL (0.2-1.0); BLOOD UREA NITROGEN 10 MG/DL (7-18); CALCIUM LEVEL 7.1 MG/DL (8.5-10.1); CARBON DIOXIDE LEVEL 26 MEQ/L (21-32); CHLORIDE LEVEL 102 MEQ/L (98-107); CREATININE FOR GFR 0.66 MG/DL (0.70-1.30); GLOMERULAR FILTRATION RATE > 60.0 (>60); GLUCOSE, FASTING 106 MG/DL (70-100); PHOSPHORUS LEVEL 3.9 MG/DL (2.5-4.9); POTASSIUM SERUM 4.5 MEQ/L (3.5-5.1); SODIUM LEVEL 136 MEQ/L (136-145); TOTAL PROTEIN 4.9 GM/DL (6.4-8.2)
[2018-06-17 14:12] LABS: BASO % 1.2 % (0.0-1.0); EOS % 1.2 % (0.0-3.0); HEMATOCRIT 25.9 % (42.0-52.0); HEMOGLOBIN 8.3 g/dl (13.5-17.5); LYMPH % 20.9 % (24.0-44.0); MEAN CORPUSCULAR HEMOGLOBIN 29.9 pg (27.0-33.0); MEAN CORPUSCULAR VOLUME 93.2 fl (80.0-96.0); MONO # 0.3 10^3/uL (0.0-0.8); NEUTROPHILS % 37.2 % (36.0-66.0); PLATELET COUNT, AUTOMATED 206 10^3/uL (150-450); RED BLOOD COUNT 2.78 10^6/uL (4.30-6.10)
[2018-06-17 14:21] LABS: WHITE BLOOD COUNT 0.9 10^3/uL (4.0-10.0)
[2018-06-17 14:35] LABS: LYMPH # 0.2 10^3/uL (1.5-6.5); NEUTROPHILS # 0.3 10^3/uL (1.8-7.7)
== END ==
LOC: M SHH 12:06
PROVIDERS: ATTEND Nurse Practitioner Adult Health
DX: C40.21 Malignant neoplasm of long bones of right lower limb (principal)

== ENCOUNTER → 2018-06-19 | Outpatient (REF) | payer OTHER ==
[2018-06-19 13:51] LABS: HEMATOCRIT 26.9 % (42.0-52.0); HEMOGLOBIN 8.5 g/dl (13.5-17.5); MEAN CORPUSCULAR HEMOGLOBIN 29.3 pg (27.0-33.0); MEAN CORPUSCULAR HGB CONC 31.6 g/dl (32.0-36.5); MEAN CORPUSCULAR VOLUME 92.8 fl (80.0-96.0); PLATELET COUNT, AUTOMATED 344 10^3/uL (150-450); WHITE BLOOD COUNT 3.5 10^3/uL (4.0-10.0)
[2018-06-19 13:56] LABS: ALBUMIN 1.4 GM/DL (3.2-5.2); ALT/SGPT 27 U/L (12-78); BILIRUBIN,TOTAL 0.2 MG/DL (0.2-1.0); BLOOD UREA NITROGEN 12 MG/DL (7-18); CALCIUM LEVEL 7.6 MG/DL (8.5-10.1); CARBON DIOXIDE LEVEL 28 MEQ/L (21-32); CHLORIDE LEVEL 101 MEQ/L (98-107); CREATININE FOR GFR 0.66 MG/DL (0.70-1.30); GLOMERULAR FILTRATION RATE > 60.0 (>60); GLUCOSE, FASTING 101 MG/DL (70-100); MAGNESIUM LEVEL 1.1 MG/DL (1.8-2.4); PHOSPHORUS LEVEL 3.8 MG/DL (2.5-4.9); POTASSIUM SERUM 4.6 MEQ/L (3.5-5.1); SODIUM LEVEL 137 MEQ/L (136-145); TOTAL PROTEIN 4.9 GM/DL (6.4-8.2)
[2018-06-19 14:13] LABS: ATYPICAL LYMPH 1 % (0-5); EOSINOPHILS 1 % (0-5); LYMPHOCYTES 9 % (16-52); MONOCYTES 8 % (0-8); NEUTROPHILS 81 % (35-75); PLATELET ESTIMATE NORMAL (NORMAL)
== END ==
LOC: M SHH 13:32
PROVIDERS: ATTEND Physician Assistant
DX: C40.21 Malignant neoplasm of long bones of right lower limb (principal); E83.42 Hypomagnesemia; Z09 Encounter for follow-up examination after completed treatment for conditions other than malignant neoplasm

== ENCOUNTER → 2018-06-29 | Outpatient (REF) | payer OTHER ==
[2018-06-29 12:08] LABS: HEMOGLOBIN 8.7 g/dl (13.5-17.5); MEAN CORPUSCULAR HEMOGLOBIN 29.6 pg (27.0-33.0); MEAN CORPUSCULAR HGB CONC 32.2 g/dl (32.0-36.5); MEAN CORPUSCULAR VOLUME 91.8 fl (80.0-96.0); PLATELET COUNT, AUTOMATED 257 10^3/uL (150-450); RED BLOOD COUNT 2.94 10^6/uL (4.30-6.10)
[2018-06-29 12:11] LABS: WHITE BLOOD COUNT 54.4 10^3/uL (4.0-10.0)
[2018-06-29 12:32] LABS: ALBUMIN 1.7 GM/DL (3.2-5.2); ALT/SGPT 16 U/L (12-78); BILIRUBIN,TOTAL 0.3 MG/DL (0.2-1.0); BLOOD UREA NITROGEN 22 MG/DL (7-18); CALCIUM LEVEL 7.9 MG/DL (8.5-10.1); CARBON DIOXIDE LEVEL 23 MEQ/L (21-32); CHLORIDE LEVEL 101 MEQ/L (98-107); CREATININE FOR GFR 0.83 MG/DL (0.70-1.30); GLOMERULAR FILTRATION RATE > 60.0 (>60); GLUCOSE, FASTING 73 MG/DL (70-100); MAGNESIUM LEVEL 1.2 MG/DL (1.8-2.4); PHOSPHORUS LEVEL 4.2 MG/DL (2.5-4.9); POTASSIUM SERUM 4.5 MEQ/L (3.5-5.1); SODIUM LEVEL 133 MEQ/L (136-145); TOTAL PROTEIN 5.3 GM/DL (6.4-8.2)
[2018-06-29 13:21] LABS: LYMPHOCYTES 1 % (16-52); NEUTROPHILS 97 % (35-75); PLATELET ESTIMATE NORMAL (NORMAL)
[2018-06-29 13:22] LABS: DOHLE BODIES 1+; POIKILOCYTOSIS 1+; TOXIC GRANULATION 1+
== END ==
LOC: M SHH 11:47
PROVIDERS: ATTEND Physician Assistant
DX: Z09 Encounter for follow-up examination after completed treatment for conditions other than malignant neoplasm (principal); C40.21 Malignant neoplasm of long bones of right lower limb; E83.42 Hypomagnesemia

== ENCOUNTER → 2018-07-01 | Outpatient (REF) | payer OTHER ==
[2018-07-01 13:27] LABS: HEMATOCRIT 24.4 % (42.0-52.0); HEMOGLOBIN 7.6 g/dl (13.5-17.5); MEAN CORPUSCULAR HEMOGLOBIN 28.9 pg (27.0-33.0); MEAN CORPUSCULAR HGB CONC 31.1 g/dl (32.0-36.5); MEAN CORPUSCULAR VOLUME 92.8 fl (80.0-96.0); PLATELET COUNT, AUTOMATED 126 10^3/uL (150-450); RED BLOOD COUNT 2.63 10^6/uL (4.30-6.10); WHITE BLOOD COUNT 10.3 10^3/uL (4.0-10.0)
[2018-07-01 13:31] LABS: ALBUMIN 1.7 GM/DL (3.2-5.2); ALT/SGPT 12 U/L (12-78); BILIRUBIN,TOTAL 0.3 MG/DL (0.2-1.0); BLOOD UREA NITROGEN 17 MG/DL (7-18); CALCIUM LEVEL 7.4 MG/DL (8.5-10.1); CARBON DIOXIDE LEVEL 21 MEQ/L (21-32); CHLORIDE LEVEL 103 MEQ/L (98-107); CREATININE FOR GFR 0.67 MG/DL (0.70-1.30); GLOMERULAR FILTRATION RATE > 60.0 (>60); GLUCOSE, FASTING 115 MG/DL (70-100); PHOSPHORUS LEVEL 3.9 MG/DL (2.5-4.9); POTASSIUM SERUM 4.5 MEQ/L (3.5-5.1); SODIUM LEVEL 133 MEQ/L (136-145); TOTAL PROTEIN 4.9 GM/DL (6.4-8.2)
[2018-07-01 14:17] LABS: ATYPICAL LYMPH 2 % (0-5); LYMPHOCYTES 4 % (16-52); MONOCYTES 1 % (0-8); NEUTROPHILS 92 % (35-75)
[2018-07-01 14:18] LABS: PLATELET ESTIMATE DECREASED (NORMAL)
[2018-07-01 14:20] LABS: DOHLE BODIES 1+; TOXIC GRANULATION 2+; TOXIC VACUOLATION 1+
[2018-07-01 14:21] LABS: ANISOCYTOSIS 1+; POIKILOCYTOSIS 1+
[2018-07-01 14:22] LABS: OVALOCYTES 1+; SCHISTOCYTES 1+
== END ==
LOC: M LAB REF 12:46 → M SHH 12:46
PROVIDERS: ATTEND Physician Assistant
DX: C40.21 Malignant neoplasm of long bones of right lower limb (principal); E83.42 Hypomagnesemia; Z09 Encounter for follow-up examination after completed treatment for conditions other than malignant neoplasm

== ENCOUNTER → 2018-07-03 | Outpatient (REF) | payer OTHER ==
[2018-07-03 13:09] LABS: HEMATOCRIT 24.1 % (42.0-52.0); HEMOGLOBIN 7.6 g/dl (13.5-17.5); MEAN CORPUSCULAR HEMOGLOBIN 29.1 pg (27.0-33.0); MEAN CORPUSCULAR HGB CONC 31.5 g/dl (32.0-36.5); MEAN CORPUSCULAR VOLUME 92.3 fl (80.0-96.0); RED BLOOD COUNT 2.61 10^6/uL (4.30-6.10)
[2018-07-03 13:45] LABS: PLATELET COUNT, AUTOMATED 57 10^3/uL (150-450); WHITE BLOOD COUNT 1.2 10^3/uL (4.0-10.0)
[2018-07-03 14:03] LABS: BASOPHILS 5 % (0-4); LYMPHOCYTES 23 % (16-52); MONOCYTES 7 % (0-8); NEUTROPHILS 65 % (35-75)
[2018-07-03 14:04] LABS: ANISOCYTOSIS 1+; PLATELET ESTIMATE DECREASED (NORMAL); TOXIC GRANULATION 1+
[2018-07-03 14:41] LABS: ALBUMIN 1.6 GM/DL (3.2-5.2); ALT/SGPT 11 U/L (12-78); BILIRUBIN,TOTAL 0.4 MG/DL (0.2-1.0); BLOOD UREA NITROGEN 13 MG/DL (7-18); CALCIUM LEVEL 7.7 MG/DL (8.5-10.1); CARBON DIOXIDE LEVEL 21 MEQ/L (21-32); CHLORIDE LEVEL 103 MEQ/L (98-107); CREATININE FOR GFR 0.59 MG/DL (0.70-1.30); GLOMERULAR FILTRATION RATE > 60.0 (>60); GLUCOSE, FASTING 105 MG/DL (70-100); MAGNESIUM LEVEL 1.2 MG/DL (1.8-2.4); PHOSPHORUS LEVEL 3.2 MG/DL (2.5-4.9); POTASSIUM SERUM 4.5 MEQ/L (3.5-5.1); SODIUM LEVEL 135 MEQ/L (136-145); TOTAL PROTEIN 5.5 GM/DL (6.4-8.2)
== END ==
LOC: M LAB REF 12:16
PROVIDERS: ATTEND Physician Assistant
DX: Z09 Encounter for follow-up examination after completed treatment for conditions other than malignant neoplasm (principal); C40.21 Malignant neoplasm of long bones of right lower limb; E83.42 Hypomagnesemia

== ENCOUNTER → 2018-07-06 | Outpatient (REF) | payer OTHER ==
[2018-07-06 12:00] LABS: HEMATOCRIT 24.2 % (42.0-52.0); HEMOGLOBIN 7.6 g/dl (13.5-17.5); MEAN CORPUSCULAR HGB CONC 31.4 g/dl (32.0-36.5); MEAN CORPUSCULAR VOLUME 92.4 fl (80.0-96.0); RED BLOOD COUNT 2.62 10^6/uL (4.30-6.10); WHITE BLOOD COUNT 8.2 10^3/uL (4.0-10.0)
[2018-07-06 12:08] LABS: PLATELET COUNT, AUTOMATED 88 10^3/uL (150-450)
[2018-07-06 12:25] LABS: ALT/SGPT 11 U/L (12-78); BLOOD UREA NITROGEN 12 MG/DL (7-18); CARBON DIOXIDE LEVEL 25 MEQ/L (21-32); CHLORIDE LEVEL 102 MEQ/L (98-107); CREATININE FOR GFR 0.63 MG/DL (0.70-1.30); GLOMERULAR FILTRATION RATE > 60.0 (>60); GLUCOSE, FASTING 92 MG/DL (70-100); PHOSPHORUS LEVEL 3.3 MG/DL (2.5-4.9); POTASSIUM SERUM 4.2 MEQ/L (3.5-5.1); SODIUM LEVEL 134 MEQ/L (136-145)
[2018-07-06 12:26] LABS: ALBUMIN 1.7 GM/DL (3.2-5.2); BILIRUBIN,TOTAL 0.2 MG/DL (0.2-1.0); MAGNESIUM LEVEL 1.1 MG/DL (1.8-2.4); TOTAL PROTEIN 5.2 GM/DL (6.4-8.2)
[2018-07-06 12:48] LABS: LYMPHOCYTES 6 % (16-52); MONOCYTES 14 % (0-8); NEUTROPHILS 80 % (35-75); PLATELET ESTIMATE DECREASED (NORMAL)
== END ==
LOC: M SHH 11:30 → M LAB REF 11:30
PROVIDERS: ATTEND Physician Assistant
DX: C40.21 Malignant neoplasm of long bones of right lower limb (principal); E83.42 Hypomagnesemia; Z09 Encounter for follow-up examination after completed treatment for conditions other than malignant neoplasm

== ENCOUNTER → 2018-07-08 | Outpatient (REF) | payer OTHER ==
[2018-07-08 14:30] LABS: MEAN CORPUSCULAR HEMOGLOBIN 29.7 pg (27.0-33.0); MEAN CORPUSCULAR HGB CONC 31.8 g/dl (32.0-36.5); MEAN CORPUSCULAR VOLUME 93.2 fl (80.0-96.0); PLATELET COUNT, AUTOMATED 162 10^3/uL (150-450); RED BLOOD COUNT 2.36 10^6/uL (4.30-6.10); WHITE BLOOD COUNT 19.4 10^3/uL (4.0-10.0)
[2018-07-08 15:17] LABS: ANISOCYTOSIS 1+; LYMPHOCYTES 2 % (16-52); METAMYELOCYTES 2 % (0-0); MONOCYTES 7 % (0-8); MYELOCYTES 2 % (0-0); NEUTROPHILS 83 % (35-75); PROMYELOCYTES 1 % (0-0)
[2018-07-08 15:19] LABS: PLATELET ESTIMATE DECREASED (NORMAL)
[2018-07-08 15:35] LABS: ALBUMIN 1.5 GM/DL (3.2-5.2); ALT/SGPT 11 U/L (12-78); BILIRUBIN,TOTAL 0.3 MG/DL (0.2-1.0); BLOOD UREA NITROGEN 13 MG/DL (7-18); CALCIUM LEVEL 7.5 MG/DL (8.5-10.1); CARBON DIOXIDE LEVEL 22 MEQ/L (21-32); CHLORIDE LEVEL 101 MEQ/L (98-107); CREATININE FOR GFR 0.68 MG/DL (0.70-1.30); GLOMERULAR FILTRATION RATE > 60.0 (>60); GLUCOSE, FASTING 93 MG/DL (70-100); MAGNESIUM LEVEL 1.4 MG/DL (1.8-2.4); PHOSPHORUS LEVEL 3.3 MG/DL (2.5-4.9); POTASSIUM SERUM 4.1 MEQ/L (3.5-5.1); SODIUM LEVEL 133 MEQ/L (136-145); TOTAL PROTEIN 5.2 GM/DL (6.4-8.2)
== END ==
LOC: M SHH 13:10
PROVIDERS: ATTEND Physician Assistant
DX: C40.21 Malignant neoplasm of long bones of right lower limb (principal); E83.42 Hypomagnesemia; Z09 Encounter for follow-up examination after completed treatment for conditions other than malignant neoplasm

== ENCOUNTER → 2018-07-09 | Outpatient (REF) | payer OTHER ==
[2018-07-09 13:48] LABS: AMORPHOUS SEDIMENT SMALL (NEGATIVE); APPEARANCE, URINE CLOUDY (CLEAR); BACTERIA, URINE AUTO 3+ (NEGATIVE); BILIRUBIN, URINE AUTO NEGATIVE (NEGATIVE); BLOOD, URINE BLOOD 1+ (NEGATIVE); COLOR, URINE YELLOW (YELLOW); GLUCOSE, URINE (UA) AUTO NEGATIVE (NEGATIVE); KETONE, URINE AUTO NEGATIVE (NEGATIVE); LEUKOCYTE ESTERASE, URINE AUTO 1+ (NEGATIVE); MUCUS, URINE SMALL (NEGATIVE); NITRITE, URINE AUTO NEGATIVE (NEGATIVE); PROTEIN, URINE AUTO 1+ mg/dL (NEGATIVE); RBC, URINE AUTO 8 /HPF (0-3); SPECIFIC GRAVITY URINE AUTO 1.016 (1.002-1.035); SQUAMOUS EPITHELIAL CELL UR AU 0 /HPF (0-6); UROBILINOGEN, URINE AUTO 0.2 mg/dL (0.0-2.0); WBC, URINE AUTO 104 /HPF (0-3)
== END ==
LOC: M SHH 13:05
PROVIDERS: ATTEND Physician Assistant
DX: R30.0 Dysuria (principal)

== ENCOUNTER → 2018-07-10 | Outpatient (REF) | payer OTHER ==
[2018-07-10 13:02] LABS: HEMATOCRIT 22.8 % (42.0-52.0); HEMOGLOBIN 7.2 g/dl (13.5-17.5); MEAN CORPUSCULAR HEMOGLOBIN 29.8 pg (27.0-33.0); MEAN CORPUSCULAR HGB CONC 31.6 g/dl (32.0-36.5); MEAN CORPUSCULAR VOLUME 94.2 fl (80.0-96.0); PLATELET COUNT, AUTOMATED 315 10^3/uL (150-450); RED BLOOD COUNT 2.42 10^6/uL (4.30-6.10); WHITE BLOOD COUNT 21.3 10^3/uL (4.0-10.0)
[2018-07-10 13:36] LABS: ALBUMIN 1.5 GM/DL (3.2-5.2); ALT/SGPT 14 U/L (12-78); BILIRUBIN,TOTAL 0.2 MG/DL (0.2-1.0); BLOOD UREA NITROGEN 12 MG/DL (7-18); CALCIUM LEVEL 7.5 MG/DL (8.5-10.1); CARBON DIOXIDE LEVEL 23 MEQ/L (21-32); CHLORIDE LEVEL 101 MEQ/L (98-107); CREATININE FOR GFR 0.62 MG/DL (0.70-1.30); GLOMERULAR FILTRATION RATE > 60.0 (>60); GLUCOSE, FASTING 74 MG/DL (70-100); MAGNESIUM LEVEL 1.5 MG/DL (1.8-2.4); POTASSIUM SERUM 4.3 MEQ/L (3.5-5.1); SODIUM LEVEL 134 MEQ/L (136-145); TOTAL PROTEIN 5.3 GM/DL (6.4-8.2)
[2018-07-10 14:54] LABS: ANISOCYTOSIS 1+; LYMPHOCYTES 2 % (16-52); METAMYELOCYTES 2 % (0-0); MONOCYTES 7 % (0-8); MYELOCYTES 1 % (0-0); NEUTROPHILS 85 % (35-75); PLATELET ESTIMATE NORMAL (NORMAL)
[2018-07-10 14:55] LABS: POLYCHROMASIA 1+; TOXIC GRANULATION 1+
== END ==
LOC: M SHH 11:24
PROVIDERS: ATTEND Physician Assistant
DX: C40.21 Malignant neoplasm of long bones of right lower limb (principal); E83.42 Hypomagnesemia; Z09 Encounter for follow-up examination after completed treatment for conditions other than malignant neoplasm

== ENCOUNTER → 2018-07-17 | Outpatient (REF) | payer OTHER ==
[2018-07-17 12:17] LABS: BASO % 0.2 % (0.0-1.0); HEMATOCRIT 24.1 % (42.0-52.0); HEMOGLOBIN 7.6 g/dl (13.5-17.5); LYMPH # 0.3 10^3/uL (1.5-6.5); LYMPH % 2.5 % (24.0-44.0); MEAN CORPUSCULAR HEMOGLOBIN 29.3 pg (27.0-33.0); MEAN CORPUSCULAR HGB CONC 31.5 g/dl (32.0-36.5); MEAN CORPUSCULAR VOLUME 93.1 fl (80.0-96.0); MONO # 0.6 10^3/uL (0.0-0.8); MONO % 4.8 % (0.0-5.0); NEUTROPHILS # 11.5 10^3/uL (1.8-7.7); NEUTROPHILS % 91.2 % (36.0-66.0); PLATELET COUNT, AUTOMATED 378 10^3/uL (150-450); RED BLOOD COUNT 2.59 10^6/uL (4.30-6.10); WHITE BLOOD COUNT 12.6 10^3/uL (4.0-10.0)
[2018-07-17 12:49] LABS: ALBUMIN 1.7 GM/DL (3.2-5.2); ALT/SGPT 13 U/L (12-78); BILIRUBIN,TOTAL 0.2 MG/DL (0.2-1.0); BLOOD UREA NITROGEN 30 MG/DL (7-18); CALCIUM LEVEL 7.6 MG/DL (8.5-10.1); CARBON DIOXIDE LEVEL 20 MEQ/L (21-32); CHLORIDE LEVEL 105 MEQ/L (98-107); GLOMERULAR FILTRATION RATE > 60.0 (>60); GLUCOSE, FASTING 98 MG/DL (70-100); MAGNESIUM LEVEL 1.2 MG/DL (1.8-2.4); PHOSPHORUS LEVEL 4.1 MG/DL (2.5-4.9); POTASSIUM SERUM 4.9 MEQ/L (3.5-5.1); SODIUM LEVEL 135 MEQ/L (136-145); TOTAL PROTEIN 4.9 GM/DL (6.4-8.2)
== END ==
LOC: M SHH 11:42
PROVIDERS: ATTEND Physician Assistant
DX: Z09 Encounter for follow-up examination after completed treatment for conditions other than malignant neoplasm (principal); E83.42 Hypomagnesemia; C40.21 Malignant neoplasm of long bones of right lower limb; Z92.21 Personal history of antineoplastic chemotherapy

== ENCOUNTER → 2018-07-20 | Outpatient (REF) | payer OTHER ==
[2018-07-20 13:14] LABS: HEMATOCRIT 22.6 % (42.0-52.0); HEMOGLOBIN 7.2 g/dl (13.5-17.5); MEAN CORPUSCULAR HEMOGLOBIN 29.9 pg (27.0-33.0); MEAN CORPUSCULAR HGB CONC 31.9 g/dl (32.0-36.5); MEAN CORPUSCULAR VOLUME 93.8 fl (80.0-96.0); PLATELET COUNT, AUTOMATED 199 10^3/uL (150-450); RED BLOOD COUNT 2.41 10^6/uL (4.30-6.10)
[2018-07-20 13:46] LABS: ALBUMIN 1.7 GM/DL (3.2-5.2); ALT/SGPT 11 U/L (12-78); BILIRUBIN,TOTAL 0.4 MG/DL (0.2-1.0); BLOOD UREA NITROGEN 28 MG/DL (7-18); CALCIUM LEVEL 7.9 MG/DL (8.5-10.1); CARBON DIOXIDE LEVEL 22 MEQ/L (21-32); CHLORIDE LEVEL 103 MEQ/L (98-107); CREATININE FOR GFR 0.93 MG/DL (0.70-1.30); GLOMERULAR FILTRATION RATE > 60.0 (>60); GLUCOSE, FASTING 59 MG/DL (70-100); MAGNESIUM LEVEL 1.1 MG/DL (1.8-2.4); PHOSPHORUS LEVEL 3.7 MG/DL (2.5-4.9); SODIUM LEVEL 135 MEQ/L (136-145); TOTAL PROTEIN 5.2 GM/DL (6.4-8.2)
[2018-07-20 14:15] LABS: WHITE BLOOD COUNT 33.6 10^3/uL (4.0-10.0)
[2018-07-20 14:23] LABS: LYMPHOCYTES 1 % (16-52); NEUTROPHILS 98 % (35-75); PLATELET ESTIMATE NORMAL (NORMAL); TOXIC VACUOLATION 1+
[2018-07-20 14:24] LABS: ANISOCYTOSIS 2+
[2018-07-20 14:25] LABS: OVALOCYTES 1+; POIKILOCYTOSIS 1+
== END ==
LOC: M SHH 12:52 → M LAB REF 12:52
PROVIDERS: ATTEND Physician Assistant
DX: C40.21 Malignant neoplasm of long bones of right lower limb (principal); E83.42 Hypomagnesemia; Z09 Encounter for follow-up examination after completed treatment for conditions other than malignant neoplasm

== ENCOUNTER → 2018-07-24 | Outpatient (REF) | payer OTHER ==
[2018-07-24 13:18] LABS: HEMATOCRIT 17.7 % (42.0-52.0); MEAN CORPUSCULAR HEMOGLOBIN 29.3 pg (27.0-33.0); MEAN CORPUSCULAR HGB CONC 31.6 g/dl (32.0-36.5); MEAN CORPUSCULAR VOLUME 92.7 fl (80.0-96.0); RED BLOOD COUNT 1.91 10^6/uL (4.30-6.10); WHITE BLOOD COUNT 3.2 10^3/uL (4.0-10.0)
[2018-07-24 13:39] LABS: ALBUMIN 1.6 GM/DL (3.2-5.2); ALT/SGPT 9 U/L (12-78); BILIRUBIN,TOTAL 0.3 MG/DL (0.2-1.0); BLOOD UREA NITROGEN 16 MG/DL (7-18); CALCIUM LEVEL 7.5 MG/DL (8.5-10.1); CARBON DIOXIDE LEVEL 23 MEQ/L (21-32); CHLORIDE LEVEL 103 MEQ/L (98-107); CREATININE FOR GFR 0.85 MG/DL (0.70-1.30); GLOMERULAR FILTRATION RATE > 60.0 (>60); GLUCOSE, FASTING 102 MG/DL (70-100); MAGNESIUM LEVEL 1.1 MG/DL (1.8-2.4); PHOSPHORUS LEVEL 3.2 MG/DL (2.5-4.9); POTASSIUM SERUM 4.4 MEQ/L (3.5-5.1); SODIUM LEVEL 133 MEQ/L (136-145); TOTAL PROTEIN 5.2 GM/DL (6.4-8.2)
[2018-07-24 13:47] LABS: HEMOGLOBIN 5.6 g/dl (13.5-17.5); PLATELET COUNT, AUTOMATED 47 10^3/uL (150-450)
[2018-07-24 13:51] LABS: BASOPHILS 3 % (0-4); HYPOCHROMASIA 3+; LYMPHOCYTES 11 % (16-52); MONOCYTES 3 % (0-8); NEUTROPHILS 83 % (35-75); PLATELET ESTIMATE MARKED DECREASE (NORMAL)
== END ==
LOC: M SHH 12:26
PROVIDERS: ATTEND Physician Assistant
DX: Z09 Encounter for follow-up examination after completed treatment for conditions other than malignant neoplasm (principal); C40.21 Malignant neoplasm of long bones of right lower limb; E83.42 Hypomagnesemia

== ENCOUNTER → 2018-08-03 | Outpatient (REF) | payer OTHER ==
[2018-08-03 13:38] LABS: BASO % 0.3 % (0.0-1.0); EOS % 0.1 % (0.0-3.0); HEMOGLOBIN 8.3 g/dl (13.5-17.5); LYMPH # 0.4 10^3/uL (1.5-6.5); LYMPH % 3.3 % (24.0-44.0); MEAN CORPUSCULAR HEMOGLOBIN 29.7 pg (27.0-33.0); MEAN CORPUSCULAR HGB CONC 31.9 g/dl (32.0-36.5); MEAN CORPUSCULAR VOLUME 93.2 fl (80.0-96.0); MONO # 0.9 10^3/uL (0.0-0.8); MONO % 7.3 % (0.0-5.0); NEUTROPHILS # 10.2 10^3/uL (1.8-7.7); NEUTROPHILS % 86.9 % (36.0-66.0); PLATELET COUNT, AUTOMATED 340 10^3/uL (150-450); RED BLOOD COUNT 2.79 10^6/uL (4.30-6.10); WHITE BLOOD COUNT 11.7 10^3/uL (4.0-10.0)
[2018-08-03 19:02] LABS: ALBUMIN 1.4 GM/DL (3.2-5.2); ALT/SGPT 7 U/L (12-78); BILIRUBIN,TOTAL 0.2 MG/DL (0.2-1.0); BLOOD UREA NITROGEN 12 MG/DL (7-18); CALCIUM LEVEL 7.5 MG/DL (8.5-10.1); CARBON DIOXIDE LEVEL 23 MEQ/L (21-32); CHLORIDE LEVEL 105 MEQ/L (98-107); CREATININE FOR GFR 0.81 MG/DL (0.70-1.30); GLOMERULAR FILTRATION RATE > 60.0 (>60); GLUCOSE, FASTING 81 MG/DL (70-100); MAGNESIUM LEVEL 1.5 MG/DL (1.8-2.4); PHOSPHORUS LEVEL 3.7 MG/DL (2.5-4.9); POTASSIUM SERUM 4.4 MEQ/L (3.5-5.1); SODIUM LEVEL 137 MEQ/L (136-145); TOTAL PROTEIN 4.9 GM/DL (6.4-8.2)
== END ==
LOC: M LAB REF 13:16 → M SHH 13:16
PROVIDERS: ATTEND Physician Assistant
DX: C40.21 Malignant neoplasm of long bones of right lower limb (principal); E83.42 Hypomagnesemia

== ENCOUNTER → 2018-08-05 | Outpatient (REF) | payer OTHER ==
[2018-08-05 11:46] LABS: BASO % 0.4 % (0.0-1.0); EOS % 0.3 % (0.0-3.0); HEMATOCRIT 27.2 % (42.0-52.0); HEMOGLOBIN 8.4 g/dl (13.5-17.5); LYMPH # 0.4 10^3/uL (1.5-6.5); LYMPH % 3.7 % (24.0-44.0); MEAN CORPUSCULAR HEMOGLOBIN 30.2 pg (27.0-33.0); MEAN CORPUSCULAR HGB CONC 30.9 g/dl (32.0-36.5); MEAN CORPUSCULAR VOLUME 97.8 fl (80.0-96.0); MONO # 0.9 10^3/uL (0.0-0.8); MONO % 8.3 % (0.0-5.0); NEUTROPHILS # 8.9 10^3/uL (1.8-7.7); NEUTROPHILS % 85.8 % (36.0-66.0); PLATELET COUNT, AUTOMATED 332 10^3/uL (150-450); RED BLOOD COUNT 2.78 10^6/uL (4.30-6.10); WHITE BLOOD COUNT 10.4 10^3/uL (4.0-10.0)
[2018-08-05 12:24] LABS: ALBUMIN 1.5 GM/DL (3.2-5.2); ALT/SGPT 7 U/L (12-78); BILIRUBIN,TOTAL 0.3 MG/DL (0.2-1.0); BLOOD UREA NITROGEN 11 MG/DL (7-18); CALCIUM LEVEL 7.4 MG/DL (8.5-10.1); CARBON DIOXIDE LEVEL 23 MEQ/L (21-32); CHLORIDE LEVEL 105 MEQ/L (98-107); CREATININE FOR GFR 0.74 MG/DL (0.70-1.30); GLOMERULAR FILTRATION RATE > 60.0 (>60); GLUCOSE, FASTING 84 MG/DL (70-100); MAGNESIUM LEVEL 1.4 MG/DL (1.8-2.4); PHOSPHORUS LEVEL 4.1 MG/DL (2.5-4.9); POTASSIUM SERUM 4.6 MEQ/L (3.5-5.1); SODIUM LEVEL 136 MEQ/L (136-145); TOTAL PROTEIN 5.2 GM/DL (6.4-8.2)
== END ==
LOC: M SHH 11:20
PROVIDERS: ATTEND Physician Assistant
DX: E83.42 Hypomagnesemia (principal); Z09 Encounter for follow-up examination after completed treatment for conditions other than malignant neoplasm; C40.21 Malignant neoplasm of long bones of right lower limb

== ENCOUNTER → 2018-08-10 | Outpatient (REF) | payer OTHER ==
[2018-08-10 16:14] LABS: BASO # 0.1 10^3/uL (0.0-0.2); BASO % 0.5 % (0.0-1.0); EOS % 0.2 % (0.0-3.0); HEMATOCRIT 23.6 % (42.0-52.0); HEMOGLOBIN 7.1 g/dl (13.5-17.5); LYMPH # 0.4 10^3/uL (1.5-6.5); LYMPH % 3.8 % (24.0-44.0); MEAN CORPUSCULAR HEMOGLOBIN 29.6 pg (27.0-33.0); MEAN CORPUSCULAR HGB CONC 30.1 g/dl (32.0-36.5); MEAN CORPUSCULAR VOLUME 98.3 fl (80.0-96.0); MONO # 0.7 10^3/uL (0.0-0.8); MONO % 7.2 % (0.0-5.0); NEUTROPHILS # 8.9 10^3/uL (1.8-7.7); NEUTROPHILS % 87.4 % (36.0-66.0); PLATELET COUNT, AUTOMATED 324 10^3/uL (150-450); WHITE BLOOD COUNT 10.2 10^3/uL (4.0-10.0)
[2018-08-10 16:27] LABS: ALBUMIN 1.6 GM/DL (3.2-5.2); ALT/SGPT 9 U/L (12-78); BILIRUBIN,TOTAL 0.2 MG/DL (0.2-1.0); BLOOD UREA NITROGEN 13 MG/DL (7-18); CALCIUM LEVEL 7.5 MG/DL (8.5-10.1); CARBON DIOXIDE LEVEL 28 MEQ/L (21-32); CHLORIDE LEVEL 100 MEQ/L (98-107); GLOMERULAR FILTRATION RATE > 60.0 (>60); GLUCOSE, FASTING 103 MG/DL (70-100); MAGNESIUM LEVEL 1.4 MG/DL (1.8-2.4); PHOSPHORUS LEVEL 4.3 MG/DL (2.5-4.9); POTASSIUM SERUM 4.5 MEQ/L (3.5-5.1); SODIUM LEVEL 136 MEQ/L (136-145); TOTAL PROTEIN 5.8 GM/DL (6.4-8.2)
== END ==
LOC: M LAB REF 09:21
PROVIDERS: ATTEND Physician Assistant
DX: C40.21 Malignant neoplasm of long bones of right lower limb (principal); E83.42 Hypomagnesemia; Z09 Encounter for follow-up examination after completed treatment for conditions other than malignant neoplasm

== ENCOUNTER → 2018-08-12 | Outpatient (REF) | payer OTHER ==
[2018-08-12 13:05] LABS: BASO % 0.3 % (0.0-1.0); EOS % 0.2 % (0.0-3.0); HEMATOCRIT 20.3 % (42.0-52.0); LYMPH # 0.4 10^3/uL (1.5-6.5); LYMPH % 3.2 % (24.0-44.0); MEAN CORPUSCULAR HEMOGLOBIN 29.8 pg (27.0-33.0); MEAN CORPUSCULAR HGB CONC 30.5 g/dl (32.0-36.5); MEAN CORPUSCULAR VOLUME 97.6 fl (80.0-96.0); MONO # 0.8 10^3/uL (0.0-0.8); MONO % 6.5 % (0.0-5.0); NEUTROPHILS # 11.4 10^3/uL (1.8-7.7); NEUTROPHILS % 88.9 % (36.0-66.0); PLATELET COUNT, AUTOMATED 305 10^3/uL (150-450); RED BLOOD COUNT 2.08 10^6/uL (4.30-6.10); WHITE BLOOD COUNT 12.8 10^3/uL (4.0-10.0)
[2018-08-12 13:35] LABS: ALBUMIN 1.4 GM/DL (3.2-5.2); ALT/SGPT 8 U/L (12-78); BILIRUBIN,TOTAL 0.3 MG/DL (0.2-1.0); BLOOD UREA NITROGEN 17 MG/DL (7-18); CALCIUM LEVEL 7.4 MG/DL (8.5-10.1); CARBON DIOXIDE LEVEL 25 MEQ/L (21-32); CHLORIDE LEVEL 101 MEQ/L (98-107); CREATININE FOR GFR 0.74 MG/DL (0.70-1.30); GLOMERULAR FILTRATION RATE > 60.0 (>60); GLUCOSE, FASTING 97 MG/DL (70-100); MAGNESIUM LEVEL 1.6 MG/DL (1.8-2.4); PHOSPHORUS LEVEL 3.5 MG/DL (2.5-4.9); POTASSIUM SERUM 4.3 MEQ/L (3.5-5.1); SODIUM LEVEL 135 MEQ/L (136-145); TOTAL PROTEIN 5.1 GM/DL (6.4-8.2)
[2018-08-12 14:07] LABS: HEMOGLOBIN 6.2 g/dl (13.5-17.5)
== END ==
LOC: M SHH 12:37
PROVIDERS: ATTEND Physician Assistant
DX: C40.21 Malignant neoplasm of long bones of right lower limb (principal); E83.42 Hypomagnesemia; Z09 Encounter for follow-up examination after completed treatment for conditions other than malignant neoplasm

== ENCOUNTER → 2018-08-14 | Outpatient (REF) | payer OTHER ==
[2018-08-14 14:21] LABS: BASO # 0.1 10^3/uL (0.0-0.2); BASO % 0.4 % (0.0-1.0); EOS % 0.2 % (0.0-3.0); HEMATOCRIT 22.6 % (42.0-52.0); HEMOGLOBIN 7.1 g/dl (13.5-17.5); LYMPH # 0.3 10^3/uL (1.5-6.5); LYMPH % 2.6 % (24.0-44.0); MEAN CORPUSCULAR HEMOGLOBIN 30.2 pg (27.0-33.0); MEAN CORPUSCULAR HGB CONC 31.4 g/dl (32.0-36.5); MEAN CORPUSCULAR VOLUME 96.2 fl (80.0-96.0); MONO # 0.7 10^3/uL (0.0-0.8); MONO % 5.5 % (0.0-5.0); NEUTROPHILS # 10.9 10^3/uL (1.8-7.7); NEUTROPHILS % 90.7 % (36.0-66.0); PLATELET COUNT, AUTOMATED 320 10^3/uL (150-450); RED BLOOD COUNT 2.35 10^6/uL (4.30-6.10)
[2018-08-14 14:56] LABS: ALBUMIN 1.5 GM/DL (3.2-5.2); ALT/SGPT 11 U/L (12-78); BILIRUBIN,TOTAL 0.2 MG/DL (0.2-1.0); BLOOD UREA NITROGEN 20 MG/DL (7-18); CALCIUM LEVEL 7.6 MG/DL (8.5-10.1); CARBON DIOXIDE LEVEL 25 MEQ/L (21-32); CHLORIDE LEVEL 102 MEQ/L (98-107); CREATININE FOR GFR 0.88 MG/DL (0.70-1.30); GLOMERULAR FILTRATION RATE > 60.0 (>60); GLUCOSE, FASTING 86 MG/DL (70-100); MAGNESIUM LEVEL 1.7 MG/DL (1.8-2.4); POTASSIUM SERUM 4.1 MEQ/L (3.5-5.1); SODIUM LEVEL 136 MEQ/L (136-145); TOTAL PROTEIN 5.5 GM/DL (6.4-8.2)
== END ==
LOC: M SHH 13:40
PROVIDERS: ATTEND Physician Assistant
DX: C40.21 Malignant neoplasm of long bones of right lower limb (principal); E83.42 Hypomagnesemia; Z09 Encounter for follow-up examination after completed treatment for conditions other than malignant neoplasm

== ENCOUNTER → 2018-08-27 | Outpatient (REF) | payer OTHER ==
[2018-08-27 13:31] LABS: BASO % 0.8 % (0.0-1.0); EOS % 1.5 % (0.0-3.0); HEMATOCRIT 23.9 % (42.0-52.0); HEMOGLOBIN 7.7 g/dl (13.5-17.5); LYMPH % 9.8 % (24.0-44.0); MEAN CORPUSCULAR HEMOGLOBIN 30.2 pg (27.0-33.0); MEAN CORPUSCULAR HGB CONC 32.2 g/dl (32.0-36.5); MEAN CORPUSCULAR VOLUME 93.7 fl (80.0-96.0); MONO # 0.1 10^3/uL (0.0-0.8); MONO % 5.3 % (0.0-5.0); NEUTROPHILS # 1.1 10^3/uL (1.8-7.7); NEUTROPHILS % 80.3 % (36.0-66.0); RED BLOOD COUNT 2.55 10^6/uL (4.30-6.10)
[2018-08-27 13:53] LABS: ALBUMIN 1.8 GM/DL (3.2-5.2); ALT/SGPT 16 U/L (12-78); BILIRUBIN,TOTAL 0.2 MG/DL (0.2-1.0); BLOOD UREA NITROGEN 20 MG/DL (7-18); CARBON DIOXIDE LEVEL 21 MEQ/L (21-32); CHLORIDE LEVEL 105 MEQ/L (98-107); GLOMERULAR FILTRATION RATE > 60.0 (>60); GLUCOSE, FASTING 133 MG/DL (70-100); MAGNESIUM LEVEL 1.5 MG/DL (1.8-2.4); PHOSPHORUS LEVEL 2.1 MG/DL (2.5-4.9); POTASSIUM SERUM 3.2 MEQ/L (3.5-5.1); SODIUM LEVEL 137 MEQ/L (136-145); TOTAL PROTEIN 5.6 GM/DL (6.4-8.2)
[2018-08-27 14:05] LABS: LYMPH # 0.1 10^3/uL (1.5-6.5); WHITE BLOOD COUNT 1.3 10^3/uL (4.0-10.0)
[2018-08-27 14:06] LABS: PLATELET COUNT, AUTOMATED 93 10^3/uL (150-450)
== END ==
LOC: M SHH 12:37
PROVIDERS: ATTEND Physician Assistant
DX: C40.21 Malignant neoplasm of long bones of right lower limb (principal); E83.42 Hypomagnesemia; Z09 Encounter for follow-up examination after completed treatment for conditions other than malignant neoplasm

== ENCOUNTER → 2018-08-31 | Outpatient (REF) | payer OTHER ==
[2018-08-31 14:38] LABS: BASO % 0.7 % (0.0-1.0); EOS % 0.7 % (0.0-3.0); HEMATOCRIT 22.3 % (42.0-52.0); HEMOGLOBIN 7.1 g/dl (13.5-17.5); LYMPH # 0.3 10^3/uL (1.5-6.5); LYMPH % 17.1 % (24.0-44.0); MEAN CORPUSCULAR HEMOGLOBIN 30.2 pg (27.0-33.0); MEAN CORPUSCULAR HGB CONC 31.8 g/dl (32.0-36.5); MEAN CORPUSCULAR VOLUME 94.9 fl (80.0-96.0); MONO # 0.3 10^3/uL (0.0-0.8); MONO % 22.6 % (0.0-5.0); NEUTROPHILS % 58.9 % (36.0-66.0); PLATELET COUNT, AUTOMATED 163 10^3/uL (150-450); RED BLOOD COUNT 2.35 10^6/uL (4.30-6.10)
[2018-08-31 14:59] LABS: ALBUMIN 1.8 GM/DL (3.2-5.2); ALT/SGPT 13 U/L (12-78); BILIRUBIN,TOTAL 0.3 MG/DL (0.2-1.0); BLOOD UREA NITROGEN 16 MG/DL (7-18); CALCIUM LEVEL 7.7 MG/DL (8.5-10.1); CARBON DIOXIDE LEVEL 25 MEQ/L (21-32); CHLORIDE LEVEL 104 MEQ/L (98-107); GLOMERULAR FILTRATION RATE > 60.0 (>60); GLUCOSE, FASTING 122 MG/DL (70-100); MAGNESIUM LEVEL 1.7 MG/DL (1.8-2.4); PHOSPHORUS LEVEL 3.5 MG/DL (2.5-4.9); POTASSIUM SERUM 3.7 MEQ/L (3.5-5.1); SODIUM LEVEL 137 MEQ/L (136-145); TOTAL PROTEIN 5.3 GM/DL (6.4-8.2)
[2018-08-31 15:50] LABS: NEUTROPHILS # 0.9 10^3/uL (1.8-7.7); WHITE BLOOD COUNT 1.5 10^3/uL (4.0-10.0)
== END ==
LOC: M SHH 14:04
PROVIDERS: ATTEND Physician Assistant
DX: Z09 Encounter for follow-up examination after completed treatment for conditions other than malignant neoplasm (principal); E83.42 Hypomagnesemia; C40.21 Malignant neoplasm of long bones of right lower limb

== ENCOUNTER → 2018-09-03 | Outpatient (REF) | payer OTHER ==
[2018-09-03 13:37] LABS: HEMATOCRIT 21.5 % (42.0-52.0); MEAN CORPUSCULAR HEMOGLOBIN 30.2 pg (27.0-33.0); MEAN CORPUSCULAR HGB CONC 31.6 g/dl (32.0-36.5); MEAN CORPUSCULAR VOLUME 95.6 fl (80.0-96.0); PLATELET COUNT, AUTOMATED 278 10^3/uL (150-450); RED BLOOD COUNT 2.25 10^6/uL (4.30-6.10); WHITE BLOOD COUNT 11.9 10^3/uL (4.0-10.0)
[2018-09-03 13:48] LABS: HEMOGLOBIN 6.8 g/dl (13.5-17.5)
[2018-09-03 14:04] LABS: BASOPHILS 1 % (0-4); LYMPHOCYTES 2 % (16-52); METAMYELOCYTES 1 % (0-0); MONOCYTES 4 % (0-8); NEUTROPHILS 90 % (35-75); PLATELET ESTIMATE NORMAL (NORMAL)
[2018-09-03 14:05] LABS: ANISOCYTOSIS 1+; HYPOCHROMASIA 1+
[2018-09-03 14:10] LABS: ALBUMIN 1.7 GM/DL (3.2-5.2); ALT/SGPT 12 U/L (12-78); BILIRUBIN,TOTAL 0.2 MG/DL (0.2-1.0); BLOOD UREA NITROGEN 15 MG/DL (7-18); CARBON DIOXIDE LEVEL 27 MEQ/L (21-32); CHLORIDE LEVEL 103 MEQ/L (98-107); GLOMERULAR FILTRATION RATE > 60.0 (>60); GLUCOSE, FASTING 79 MG/DL (70-100); MAGNESIUM LEVEL 1.7 MG/DL (1.8-2.4); PHOSPHORUS LEVEL 2.8 MG/DL (2.5-4.9); POTASSIUM SERUM 4.6 MEQ/L (3.5-5.1); SODIUM LEVEL 137 MEQ/L (136-145); TOTAL PROTEIN 5.4 GM/DL (6.4-8.2)
== END ==
LOC: M SHH 13:00
PROVIDERS: ATTEND Physician Assistant
DX: C40.21 Malignant neoplasm of long bones of right lower limb (principal); E83.42 Hypomagnesemia; Z09 Encounter for follow-up examination after completed treatment for conditions other than malignant neoplasm

== ENCOUNTER → 2018-09-07 | Outpatient (REF) | payer OTHER ==
[2018-09-07 13:47] LABS: HEMATOCRIT 26.7 % (42.0-52.0); HEMOGLOBIN 8.4 g/dl (13.5-17.5); MEAN CORPUSCULAR HEMOGLOBIN 30.4 pg (27.0-33.0); MEAN CORPUSCULAR HGB CONC 31.5 g/dl (32.0-36.5); MEAN CORPUSCULAR VOLUME 96.7 fl (80.0-96.0); PLATELET COUNT, AUTOMATED 294 10^3/uL (150-450); RED BLOOD COUNT 2.76 10^6/uL (4.30-6.10); WHITE BLOOD COUNT 23.9 10^3/uL (4.0-10.0)
[2018-09-07 14:10] LABS: ALBUMIN 1.8 GM/DL (3.2-5.2); ALT/SGPT 9 U/L (12-78); BILIRUBIN,TOTAL 0.2 MG/DL (0.2-1.0); BLOOD UREA NITROGEN 13 MG/DL (7-18); CALCIUM LEVEL 8.1 MG/DL (8.5-10.1); CARBON DIOXIDE LEVEL 26 MEQ/L (21-32); CHLORIDE LEVEL 102 MEQ/L (98-107); CREATININE FOR GFR 0.65 MG/DL (0.70-1.30); GLOMERULAR FILTRATION RATE > 60.0 (>60); GLUCOSE, FASTING 72 MG/DL (70-100); MAGNESIUM LEVEL 1.6 MG/DL (1.8-2.4); PHOSPHORUS LEVEL 3.3 MG/DL (2.5-4.9); POTASSIUM SERUM 3.8 MEQ/L (3.5-5.1); SODIUM LEVEL 138 MEQ/L (136-145); TOTAL PROTEIN 5.2 GM/DL (6.4-8.2)
[2018-09-07 14:23] LABS: LYMPHOCYTES 3 % (16-52); MONOCYTES 5 % (0-8); NEUTROPHILS 92 % (35-75); PLATELET ESTIMATE NORMAL (NORMAL)
[2018-09-07 14:24] LABS: ANISOCYTOSIS 2+
== END ==
LOC: M SHH 12:32
PROVIDERS: ATTEND Physician Assistant
DX: C40.21 Malignant neoplasm of long bones of right lower limb (principal); Z09 Encounter for follow-up examination after completed treatment for conditions other than malignant neoplasm; E83.42 Hypomagnesemia

== ENCOUNTER → 2018-09-09 | Outpatient (REF) | payer OTHER ==
[2018-09-09 13:33] LABS: BASO # 0.1 10^3/uL (0.0-0.2); BASO % 0.3 % (0.0-1.0); HEMATOCRIT 26.1 % (42.0-52.0); LYMPH # 0.4 10^3/uL (1.5-6.5); LYMPH % 1.8 % (24.0-44.0); MEAN CORPUSCULAR HEMOGLOBIN 29.9 pg (27.0-33.0); MEAN CORPUSCULAR HGB CONC 30.7 g/dl (32.0-36.5); MEAN CORPUSCULAR VOLUME 97.4 fl (80.0-96.0); MONO # 1.3 10^3/uL (0.0-0.8); MONO % 5.2 % (0.0-5.0); NEUTROPHILS # 21.4 10^3/uL (1.8-7.7); NEUTROPHILS % 88.3 % (36.0-66.0); PLATELET COUNT, AUTOMATED 256 10^3/uL (150-450); RED BLOOD COUNT 2.68 10^6/uL (4.30-6.10); WHITE BLOOD COUNT 24.2 10^3/uL (4.0-10.0)
[2018-09-09 14:00] LABS: ALBUMIN 1.7 GM/DL (3.2-5.2); ALT/SGPT 6 U/L (12-78); BILIRUBIN,TOTAL 0.2 MG/DL (0.2-1.0); BLOOD UREA NITROGEN 16 MG/DL (7-18); CALCIUM LEVEL 7.4 MG/DL (8.5-10.1); CARBON DIOXIDE LEVEL 27 MEQ/L (21-32); CHLORIDE LEVEL 97 MEQ/L (98-107); CREATININE FOR GFR 0.83 MG/DL (0.70-1.30); GLOMERULAR FILTRATION RATE > 60.0 (>60); GLUCOSE, FASTING 78 MG/DL (70-100); MAGNESIUM LEVEL 1.8 MG/DL (1.8-2.4); PHOSPHORUS LEVEL 4.3 MG/DL (2.5-4.9); POTASSIUM SERUM 4.2 MEQ/L (3.5-5.1); SODIUM LEVEL 133 MEQ/L (136-145); TOTAL PROTEIN 5.5 GM/DL (6.4-8.2)
== END ==
LOC: M LAB REF 12:29 → M SHH 12:29
PROVIDERS: ATTEND Physician Assistant
DX: C40.21 Malignant neoplasm of long bones of right lower limb (principal); E83.42 Hypomagnesemia; Z09 Encounter for follow-up examination after completed treatment for conditions other than malignant neoplasm

== ENCOUNTER → 2018-09-14 | Outpatient (REF) | payer OTHER ==
[2018-09-14 14:11] LABS: BASO % 0.3 % (0.0-1.0); EOS % 0.1 % (0.0-3.0); HEMATOCRIT 21.3 % (42.0-52.0); LYMPH # 0.6 10^3/uL (1.5-6.5); LYMPH % 3.7 % (24.0-44.0); MEAN CORPUSCULAR HEMOGLOBIN 29.5 pg (27.0-33.0); MEAN CORPUSCULAR VOLUME 95.1 fl (80.0-96.0); MONO # 0.9 10^3/uL (0.0-0.8); MONO % 5.8 % (0.0-5.0); NEUTROPHILS # 13.9 10^3/uL (1.8-7.7); NEUTROPHILS % 89.1 % (36.0-66.0); PLATELET COUNT, AUTOMATED 313 10^3/uL (150-450); RED BLOOD COUNT 2.24 10^6/uL (4.30-6.10); WHITE BLOOD COUNT 15.6 10^3/uL (4.0-10.0)
[2018-09-14 14:22] LABS: APPEARANCE, URINE CLOUDY (CLEAR); BACTERIA, URINE AUTO 3+ (NEGATIVE); BILIRUBIN, URINE AUTO NEGATIVE (NEGATIVE); BLOOD, URINE BLOOD 1+ (NEGATIVE); COLOR, URINE YELLOW (YELLOW); GLUCOSE, URINE (UA) AUTO NEGATIVE (NEGATIVE); KETONE, URINE AUTO NEGATIVE (NEGATIVE); LEUKOCYTE ESTERASE, URINE AUTO 3+ (NEGATIVE); MUCUS, URINE SMALL (NEGATIVE); NITRITE, URINE AUTO POSITIVE (NEGATIVE); PROTEIN, URINE AUTO 1+ mg/dL (NEGATIVE); RBC, URINE AUTO 8 /HPF (0-3); SPECIFIC GRAVITY URINE AUTO 1.018 (1.002-1.035); SQUAMOUS EPITHELIAL CELL UR AU 0 /HPF (0-6); URIC ACID CRYSTALS SMALL; UROBILINOGEN, URINE AUTO 0.2 mg/dL (0.0-2.0); WBC, URINE AUTO TNTC /HPF (0-3)
[2018-09-14 14:39] LABS: ALBUMIN 1.6 GM/DL (3.2-5.2); ALT/SGPT 8 U/L (12-78); BILIRUBIN,TOTAL 0.4 MG/DL (0.2-1.0); BLOOD UREA NITROGEN 18 MG/DL (7-18); CALCIUM LEVEL 7.5 MG/DL (8.5-10.1); CARBON DIOXIDE LEVEL 25 MEQ/L (21-32); CHLORIDE LEVEL 98 MEQ/L (98-107); CREATININE FOR GFR 0.71 MG/DL (0.70-1.30); GLOMERULAR FILTRATION RATE > 60.0 (>60); GLUCOSE, FASTING 77 MG/DL (70-100); MAGNESIUM LEVEL 2.2 MG/DL (1.8-2.4); PHOSPHORUS LEVEL 4.4 MG/DL (2.5-4.9); POTASSIUM SERUM 4.4 MEQ/L (3.5-5.1); SODIUM LEVEL 133 MEQ/L (136-145); TOTAL PROTEIN 5.3 GM/DL (6.4-8.2)
[2018-09-14 14:55] LABS: HEMOGLOBIN 6.6 g/dl (13.5-17.5)
== END ==
LOC: M SHH 13:51 → M LAB REF 13:51 → EEVIPCON 13:51
PROVIDERS: ATTEND Physician Assistant
DX: C40.21 Malignant neoplasm of long bones of right lower limb (principal); E83.42 Hypomagnesemia; Z09 Encounter for follow-up examination after completed treatment for conditions other than malignant neoplasm

== ENCOUNTER → 2018-09-18 | Outpatient (REF) | payer OTHER ==
[2018-09-18 12:55] LABS: BASO % 0.2 % (0.0-1.0); EOS % 0.1 % (0.0-3.0); HEMATOCRIT 26.3 % (42.0-52.0); HEMOGLOBIN 8.4 g/dl (13.5-17.5); LYMPH # 0.3 10^3/uL (1.5-6.5); MEAN CORPUSCULAR HEMOGLOBIN 31.3 pg (27.0-33.0); MEAN CORPUSCULAR HGB CONC 31.9 g/dl (32.0-36.5); MEAN CORPUSCULAR VOLUME 98.1 fl (80.0-96.0); MONO # 1.1 10^3/uL (0.0-0.8); MONO % 6.7 % (0.0-5.0); NEUTROPHILS # 14.6 10^3/uL (1.8-7.7); NEUTROPHILS % 90.1 % (36.0-66.0); PLATELET COUNT, AUTOMATED 313 10^3/uL (150-450); RED BLOOD COUNT 2.68 10^6/uL (4.30-6.10); WHITE BLOOD COUNT 16.2 10^3/uL (4.0-10.0)
[2018-09-18 13:15] LABS: ALBUMIN 1.8 GM/DL (3.2-5.2); ALT/SGPT 9 U/L (12-78); BILIRUBIN,TOTAL 0.6 MG/DL (0.2-1.0); BLOOD UREA NITROGEN 16 MG/DL (7-18); CALCIUM LEVEL 8.1 MG/DL (8.5-10.1); CARBON DIOXIDE LEVEL 25 MEQ/L (21-32); CHLORIDE LEVEL 97 MEQ/L (98-107); CREATININE FOR GFR 0.86 MG/DL (0.70-1.30); GLOMERULAR FILTRATION RATE > 60.0 (>60); GLUCOSE, FASTING 80 MG/DL (70-100); MAGNESIUM LEVEL 2.1 MG/DL (1.8-2.4); POTASSIUM SERUM 4.4 MEQ/L (3.5-5.1); SODIUM LEVEL 132 MEQ/L (136-145); TOTAL PROTEIN 5.6 GM/DL (6.4-8.2)
== END ==
LOC: M LAB REF 12:39
PROVIDERS: ATTEND Physician Assistant
DX: C40.21 Malignant neoplasm of long bones of right lower limb (principal)